=== PATIENT | male | born 1940 | race Caucasian/White ===

== ENCOUNTER 2017-01-02 10:10 | Inpatient (IN) | payer OTHER, MEDICARE ==
[~2017-01-02] VITALS: Ht 170.2 cm; Wt 69.5 kg
[2017-01-02] VITALS (10 sets, daily range): BP systolic 133–153; BP diastolic 64–99; PULSE 52–81; RESP 16–18; TEMP 97.6–98.3; O2SAT 98–100
[~2017-01-02 10:10] MED LIST: CELE40TA PO; CLOP75 PO; COMBAER INH; FLUTI44I INH; MELO15TA2 PO; METO25 PO; OMEP20CA5 PO; RANI300T PO; TOPI50TA4 PO; ZOCO80TA PO; [UNRECOGNIZED DRUG - CODE] PO
[2017-01-02] MEDS ORDERED: METO25TA3 PO (10:43)
[2017-01-02] MEDS ORDERED: PLAV75TA29 PO (10:43)
[2017-01-02] MEDS ORDERED: MOBI15TA PO (10:43)
[2017-01-02] MEDS ORDERED: ATOR1TAB18 PO (10:43)
[2017-01-02] MEDS ORDERED: OMEP20CA2 PO (10:43)
[2017-01-02] MEDS ORDERED: TOPI1TAB36 PO (10:43)
[2017-01-02 11:17] LABS: AUTOMATED NEUTROPHIL # 3.5 TH/MM3 (1.8-7.7); BASOPHIL # 0.1 TH/MM3 (0-0.2); EOSINOPHIL # 0.2 TH/MM3 (0-0.4); EOSINOPHIL % 2.7 % (0.0-4.0); HEMATOCRIT 38.5 % (39.0-51.0); HEMO FLAGS DIFF FINAL; LYMPH % 34.1 % (9.0-44.0); LYMPHOCYTE # 2.2 TH/MM3 (1.0-4.8); MEAN CELL VOLUME 84.4 FL (80.0-100.0); MEAN CORPUSCULAR HEMOGLOBIN 27.9 PG (27.0-34.0); MEAN CORPUSCULAR HGB CONC 33.1 % (32.0-36.0); MONO % 8.3 % (0.0-8.0); NEUT % 53.9 % (16.0-70.0); PLATELET COUNT 164 TH/MM3 (150-450); RED BLOOD COUNT 4.56 MIL/MM3 (4.50-5.90); RED CELL DISTRIBUTION WIDTH 15.9 % (11.6-17.2); WHITE BLOOD COUNT 6.4 TH/MM3 (4.0-11.0)
[2017-01-02 11:23] LABS: APTT (PATIENT) 28.9 SEC (24.3-30.1); INTERNATIONAL NORMALIZED RATIO 1.1 RATIO
[2017-01-02 11:27] LABS: AST (GOT) 29 U/L (15-37); BLOOD UREA NITROGEN 17 MG/DL (7-18); GLOMERULAR FILTRATION RATE 77 ML/MIN (>89)
[2017-01-02 11:28] LABS: ANION GAP 9 MEQ/L (5-15); BICARBONATE 22.8 MEQ/L (21.0-32.0); CHLORIDE 107 MEQ/L (98-107); POTASSIUM 3.9 MEQ/L (3.5-5.1); SODIUM (NA) 139 MEQ/L (136-145)
[2017-01-02 11:35] LABS: ALKALINE PHOSPHATASE 65 U/L (45-117); ALT (GPT) 36 U/L (12-78); INDIRECT BILIRUBIN 0.3 MG/DL (0.0-0.8); TOTAL BILIRUBIN ADULT 0.4 MG/DL (0.2-1.0)
[2017-01-02] MEDS ORDERED: OXYC1CAP PO (12:06)
--- NOTE | 2017-01-02 12:37 | PD ---
HPI Chief Complaint: Cardiac Complaint Time Seen by Provider: 10:31 Travel History International Travel<30 days: No Contact w/Intl Traveler<30days: No Traveled to known affect area: No History of Present Illness HPI 76yo M with PMH of CAD s/p CABG was sent by Dr. Arreola's office for evaluation of possible aortic aneurysm. Pt was there for a routine check up and mentioned that he has been having abdominal pain for a few weeks. Pain is to the right and below the umbilicus and there is a pulsatile mass palpated there. The pain is not tearing and does not radiate to the back or down the legs. Denies any fever, chest pain, sob, n/v, urinary complaint, focal weakness or numbness. PFSH Past Medical History Hx Anticoagulant Therapy: Yes (plavix) AAA: Yes Arthritis: Yes Anxiety: Yes Depression: Yes Cardiovascular Problems: Yes High Cholesterol: Yes COPD: Yes Coronary Artery Disease: Yes Diabetes: Yes Patient Takes Glucophage: No Gastrointestinal Disorders: Yes GERD: Yes Hiatal Hernia: Yes Hypertension: Yes Inguinal Hernia: Yes Medical other: Yes (hyperhydrosis) Respiratory: Yes (copd) Renal Failure: Yes (stage II) Past Surgical History Abdominal Surgery: Yes (3 hernia sx) Appendectomy: Yes Coronary Artery Bypass Graft: Yes Social History Alcohol Use: Yes (occ) Tobacco Use: No Substance Use: No Allergies-Medications (Allergen,Severity, Reaction): Coded Allergies: Bee Sting (Verified Allergy, Unknown, swelling, 01/02/17) Reported Meds & Prescriptions Reported Meds & Active Scripts Active Reported Lexapro (Escitalopram Oxalate) 20 Mg Tab 20 Mg PO DAILY Oxycodone (Oxycodone HCl) 5 Mg Cap 5 Mg PO Q6H PRN Mobic (Meloxicam) 15 Mg Tab 15 Mg PO DAILY Omeprazole 20 Mg Cap 20 Mg PO HS Topiramate 50 Mg Tab 50 Mg PO BID Metoprolol Tartrate 25 Mg Tab 25 Mg PO DAILY Plavix (Clopidogrel Bisulfate) 75 Mg Tab 75 Mg PO DAILY Atorvastatin (Atorvastatin Calcium) 80 Mg Tab 80 Mg PO HS Review of Systems Except as stated in HPI: all other systems reviewed are Neg Physical Exam Narrative GENERAL: 76yo M not in distress. SKIN: Focused skin assessment warm/dry. HEAD: Atraumatic. Normocephalic. EYES: Pupils equal and round. No scleral icterus. No injection or drainage. ENT: No nasal bleeding or discharge. Mucous membranes pink and moist. NECK: Trachea midline. No JVD. CARDIOVASCULAR: Regular rate and rhythm. No murmur appreciated. RESPIRATORY: No accessory muscle use. Clear to auscultation. Breath sounds equal bilaterally. GASTROINTESTINAL: Abdomen soft, +Pulsatile mass right abdomen. No rebound tenderness or guarding. MUSCULOSKELETAL: No obvious deformities. No clubbing. No cyanosis. No edema. NEUROLOGICAL: Awake and alert. No obvious cranial nerve deficits. Motor grossly within normal limits. Normal speech. PSYCHIATRIC: Appropriate mood and affect; insight and judgment normal. Data Data Last Documented VS Vital Signs Date Time Temp Pulse Resp B/P Pulse Ox O2 Delivery O2 Flow Rate FiO2 01/02/17 15:32 16 01/02/17 14:33 97.8 62 138/81 99 Room Air Orders Complete Blood Count With Diff (01/02/17 10:37) Basic Metabolic Panel (Bmp) (01/02/17 10:37) Prothrombin Time / Inr (Pt) (01/02/17 10:37) Act Partial Throm Time (Ptt) (01/02/17 10:37) Type And Screen (01/02/17 10:37) Troponin I (01/02/17 10:37) Lipase (01/02/17 10:37) Hepatic Functional Panel (01/02/17 10:37) Cta Thor Abd Aorta W Iv C W3d (01/02/17 10:37) Electrocardiogram (01/02/17 10:31) Iohexol 350 Inj (Omnipaque 350 Inj) (01/02/17 12:48) Acetamin-Hydrocod 325-5 Mg (Wilson 5-325 (01/02/17 14:30) Admit Order (Ed Use Only) (01/02/17 16:23) Labs Laboratory Tests Test 01/02/17 10:45 White Blood Count 6.4 TH/MM3 Red Blood Count 4.56 MIL/MM3 Hemoglobin 12.7 GM/DL Hematocrit 38.5 % Mean Corpuscular Volume 84.4 FL Mean Corpuscular Hemoglobin 27.9 PG Mean Corpuscular Hemoglobin 33.1 % Concent Red Cell Distribution Width 15.9 % Platelet Count 164 TH/MM3 Mean Platelet Volume 8.8 FL Neutrophils (%) (Auto) 53.9 % Lymphocytes (%) (Auto) 34.1 % Monocytes (%) (Auto) 8.3 % Eosinophils (%) (Auto) 2.7 % Basophils (%) (Auto) 1.0 % Neutrophils # (Auto) 3.5 TH/MM3 Lymphocytes # (Auto) 2.2 TH/MM3 Monocytes # (Auto) 0.5 TH/MM3 Eosinophils # (Auto) 0.2 TH/MM3 Basophils # (Auto) 0.1 TH/MM3 CBC Comment DIFF FINAL Differential Comment Prothrombin Time 12.0 SEC Prothromb Time International 1.1 RATIO Ratio Activated Partial 28.9 SEC Thromboplast Time Sodium Level 139 MEQ/L Potassium Level 3.9 MEQ/L Chloride Level 107 MEQ/L Carbon Dioxide Level 22.8 MEQ/L Anion Gap 9 MEQ/L Blood Urea Nitrogen 17 MG/DL Creatinine 0.96 MG/DL Estimat Glomerular Filtration 77 ML/MIN Rate Random Glucose 97 MG/DL Calcium Level 9.1 MG/DL Total Bilirubin 0.4 MG/DL Direct Bilirubin 0.1 MG/DL Indirect Bilirubin 0.3 MG/DL Aspartate Amino Transf 29 U/L (AST/SGOT) Alanine Aminotransferase 36 U/L (ALT/SGPT) Alkaline Phosphatase 65 U/L Troponin I LESS THAN 0.02 NG/ML Total Protein 7.0 GM/DL Albumin 3.7 GM/DL Lipase 133 U/L Blood Type O NEGATIVE Antibody Screen NEGATIVE Blood Bank Comment MDM Medical Decision Making Medical Screen Exam Complete: Yes Emergency Medical Condition: Yes Interpretation(s) EKG: Sinus bradycardia at 49bpm. LAD. No ST segment elevation or depression. Differential Diagnosis Aortic dissection vs. aortic aneurysm vs. 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 Pt also with pain there for a few weeks. Vital signs stable. Pt takes lortab for chronic pain and has been asking for it so gave 1 tab. Labs reviewed, no leukocytosis. Lipase negative. Troponin negative. CTA showed 7.8cm jextarenal abdominal aortic and iliac aneurysm. Discussed with vascular surgeon Dr. Carranza and he will come evaluate the patient. Dr. Carranza evaluated the patient and will admit the patient for open repair. Diagnosis Primary Impression: AAA (abdominal aortic aneurysm) Qualified Code: I71.4 - Abdominal aortic aneurysm (AAA) without rupture Admitting Information Admitting Physician Requests: Admit Beverly Torrez DO Jan 02, 2017 12:37
[2017-01-02] MEDS ORDERED: IOHEXOL 350 MG/ML 10 ML VIAL (for RAD DIAG) IV ONE (12:48)
[2017-01-02] MEDS ORDERED: ACETAMINOPHEN/HYDROcodone 325 MG/5 MG TAB PO ONE (14:30)
--- NOTE | 2017-01-02 14:50 | RADRPT ---
EXAM DATE/TIME: 01/02/2017 12:22 [facility] COMPARISON: No previous studies available for comparison. INDICATIONS : Pulsatile mass in the right umbilical region with tenderness. IV CONTRAST: 95 cc Omnipaque 350 (iohexol) IV RADIATION DOSE: 6.46 CTDIvol (mGy) MEDICAL HISTORY : Cardiovascular disease. Hypertension. SURGICAL HISTORY : Hernia surgeries ENCOUNTER: Initial ACUITY: 1 day PAIN SCALE: 2/10 LOCATION: Right Umbilical TECHNIQUE: Volumetric scanning was performed using a multi-row detector CT scanner. The data was post processed with a variety of visualization algorithms including full volume maximum intensity projection, multi -planar sliding thin slab reformation, curved planar reformation, and surface rendering techniques. Using automated exposure control and adjustment of the mA and/or kV according to patient size, radiat ion dose was kept as low as reasonably achievable to obtain optimal diagnostic quality images. DICOM format image data is available electronically for review and comparison. FINDINGS: LUNGS: Mild biapical probable pleural-parenchymal scarring, slightly more prominent on the right than the le ft. MEDIASTINUM: No abnormally enlarged lymph nodes by CT criteria. No axillary or hilar abnormalities are identified. ABDOMEN: Multiple hepatic cysts. Tiny calcified gallstones. PELVIS: Urinary bladder is mildly distended. No pelvic mass, adenopathy or free fluid. THORACIC AORTA: The thoracic aortic root is normal with normal branching of the great vessels. There is no evidence of aneurysm or dissection. ABDOMINAL AORTA: A nearly 8 cm juxtarenal abdominal aortic aneurysm is identified. The apex of the aneurysm encompasse s the origin of the single left renal artery. There is abundant eccentric mural thrombus present. Dil atation extends into the iliacs bilaterally which have been previously stented. Dilatation extends do wn to the iliac bifurcation on both sides. The hypogastrics are patent bilaterally. The external yoselin cs are normal in caliber and mildly diseased bilaterally. The visualized common femoral arteries are relatively healthy and the visualized proximal thigh vessels are patent. 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 Chris Stockton MD on January 02, 2017 at 14:39 Board Certified Radiologist. This report was verified electronically.
--- NOTE | 2017-01-02 15:12 | EKG ---
Date Performed: 01/02/2017 Time Performed: 10:31:53 PTAGE: 76 years EKG: SINUS BRADYCARDIA MARKED LEFT AXIS DEVIATION MODERATE INTRAVENTRICULAR CONDUCTION DELAY ABN ORMAL ECG NO PREVIOUS TRACING DOCTOR: Jabari Finley Interpretating Date/Time 01/02/2017 15:11:33
--- NOTE | 2017-01-02 16:23 | PD.CAR.PN ---
CVT Progress Note Subjective/Hospital Course: Patient with a large AAA For open repair after basic workup Full consult GURJIT Carranza Objective: Vital Signs Date Time Temp Pulse Resp B/P Pulse Ox O2 Delivery O2 Flow Rate FiO2 01/02/17 15:32 16 01/02/17 14:33 97.8 62 16 138/81 99 Room Air 01/02/17 12:06 98.0 52 16 137/64 100 Room Air 01/02/17 10:36 54 16 144/77 100 Room Air 01/02/17 10:23 51 18 100 Room Air 01/02/17 10:14 97.6 57 16 153/73 100 Room Air Labs: Laboratory Tests Test 01/02/17 10:45 White Blood Count 6.4 TH/MM3 (4.0-11.0) Red Blood Count 4.56 MIL/MM3 (4.50-5.90) Hemoglobin 12.7 GM/DL (13.0-17.0) Hematocrit 38.5 % (39.0-51.0) Mean Corpuscular Volume 84.4 FL (80.0-100.0) Mean Corpuscular Hemoglobin 27.9 PG (27.0-34.0) Mean Corpuscular Hemoglobin 33.1 % Concent (32.0-36.0) Red Cell Distribution Width 15.9 % (11.6-17.2) Platelet Count 164 TH/MM3 (150-450) Mean Platelet Volume 8.8 FL (7.0-11.0) Neutrophils (%) (Auto) 53.9 % (16.0-70.0) Lymphocytes (%) (Auto) 34.1 % (9.0-44.0) Monocytes (%) (Auto) 8.3 % (0.0-8.0) Eosinophils (%) (Auto) 2.7 % (0.0-4.0) Basophils (%) (Auto) 1.0 % (0.0-2.0) Neutrophils # (Auto) 3.5 TH/MM3 (1.8-7.7) Lymphocytes # (Auto) 2.2 TH/MM3 (1.0-4.8) Monocytes # (Auto) 0.5 TH/MM3 (0-0.9) Eosinophils # (Auto) 0.2 TH/MM3 (0-0.4) Basophils # (Auto) 0.1 TH/MM3 (0-0.2) CBC Comment DIFF FINAL Differential Comment Prothrombin Time 12.0 SEC (9.8-11.6) Prothromb Time International 1.1 RATIO Ratio Activated Partial 28.9 SEC Thromboplast Time (24.3-30.1) Sodium Level 139 MEQ/L (136-145) Potassium Level 3.9 MEQ/L (3.5-5.1) Chloride Level 107 MEQ/L (98-107) Carbon Dioxide Level 22.8 MEQ/L (21.0-32.0) Anion Gap 9 MEQ/L (5-15) Blood Urea Nitrogen 17 MG/DL (7-18) Creatinine 0.96 MG/DL (0.60-1.30) Estimat Glomerular Filtration 77 ML/MIN (>89) Rate Random Glucose 97 MG/DL (74-106) Calcium Level 9.1 MG/DL (8.5-10.1) Total Bilirubin 0.4 MG/DL (0.2-1.0) Direct Bilirubin 0.1 MG/DL (0.0-0.2) Indirect Bilirubin 0.3 MG/DL (0.0-0.8) Aspartate Amino Transf 29 U/L (15-37) (AST/SGOT) Alanine Aminotransferase 36 U/L (12-78) (ALT/SGPT) Alkaline Phosphatase 65 U/L (45-117) Troponin I LESS THAN 0.02 NG/ML (0.02-0.05) Total Protein 7.0 GM/DL (6.4-8.2) Albumin 3.7 GM/DL (3.4-5.0) Lipase 133 U/L (73-393) Blood Type O NEGATIVE Antibody Screen NEGATIVE Blood Bank Comment Result Diagram: 01/02/17 1045 01/02/17 1045 Deysi Castillo MD Jan 02, 2017 16:22
[2017-01-02] MEDS ORDERED: LEXA20TA PO (21:59)
[2017-01-02] MEDS ORDERED: NALOXONE HCL 0.4 MG/ML AMP IV PRN (22:15)
[2017-01-02] MEDS ORDERED: SODIUM CHLORIDE 0.9% FLUSH 10 ML FLUSH IV FLUSH PRN (22:15)
[2017-01-02] MEDS ORDERED: Post-op Orders (for Pharmacy) MISC XX ONE (22:15)
[2017-01-02] MEDS ORDERED: ESCITALOPRAM OXALATE 20 MG TAB PO SCH (23:00)
[2017-01-03] VITALS (21 sets, daily range): BP systolic 122–140; BP diastolic 72–85; PULSE 52–70; RESP 18; TEMP 98.1–98.5; O2SAT 97–98
--- NOTE | 2017-01-03 08:49 | PD.CONS ---
[facility] By Dr. 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 He was seeing Dr. Arreola in the office for routine follow-up and was noted to have a palpable pulsatile mass in the abdomen. He reports some abdominal discomfort. He does have a significant family history of AAA. Denies chest pain, dyspnea. Review of Systems Constitutional: DENIES: Fever, Chills, Night Sweats Eyes: DENIES: Blurred vision, Vision loss Ears, nose, mouth, throat: DENIES: Hearing loss Respiratory: DENIES: Cough, Wheezing, Sputum production, Shortness of breath Cardiovascular: DENIES: Chest pain, Palpitations, Dyspnea on Exertion, Lower Extremity Edema Gastrointestinal: COMPLAINS OF: Abdominal pain, DENIES: Constipation, Diarrhea , Nausea, Vomiting Genitourinary: DENIES: Urinary frequency, Urinary incontinence, Urgency, Hematuria, Dysuria, Nocturia Musculoskeletal: DENIES: Joint pain, Muscle aches Integumentary: DENIES: Pruritus, Rash Hematologic/lymphatic: DENIES: Bruising Neurologic: DENIES: Headache Past Family Social History Allergies: Coded Allergies: Bee Sting (Verified Allergy, Unknown, swelling, 01/02/17) Past Medical History AAA Anxiety/depression Osteoarthritis next line hyperlipidemia Coronary artery disease COPD Diabetes mellitus, diet controlled GERD Hypertension Chronic kidney disease stage II Past Surgical History Inguinal hernia repair Umbilical hernia repair Hiatal hernia repair Appendectomy CABG 4 vessels Reported Medications Lexapro (Escitalopram Oxalate) 20 Mg Tab 20 Mg PO DAILY Oxycodone (Oxycodone HCl) 5 Mg Cap 5 Mg PO Q6H PRN Mobic (Meloxicam) 15 Mg Tab 15 Mg PO DAILY Omeprazole 20 Mg Cap 20 Mg PO HS Topiramate 50 Mg Tab 50 Mg PO BID Metoprolol Tartrate 25 Mg Tab 25 Mg PO DAILY Plavix (Clopidogrel Bisulfate) 75 Mg Tab 75 Mg PO DAILY Atorvastatin (Atorvastatin Calcium) 80 Mg Tab 80 Mg PO HS Family History AAA Heart disease Social History Quit smoking 19 years ago. Occasional alcohol use. Denies illicit drug use. Physical Exam Vital Signs Vital Signs Date Time Temp Pulse Resp B/P Pulse Ox O2 Delivery O2 Flow Rate FiO2 01/03/17 07:01 59 01/03/17 06:00 58 01/03/17 05:00 52 01/03/17 04:00 55 01/03/17 03:00 98.5 65 18 135/83 98 01/03/17 03:00 60 01/03/17 02:00 60 01/03/17 01:00 58 01/03/17 00:00 56 01/02/17 23:00 98.3 67 18 133/91 98 01/02/17 23:00 53 01/02/17 22:00 53 01/02/17 21:00 68 01/02/17 20:30 97.9 64 18 143/99 98 01/02/17 19:53 68 18 134/67 98 Room Air 01/02/17 16:31 98.1 58 16 145/67 100 Room Air 01/02/17 15:32 16 01/02/17 14:33 97.8 62 16 138/81 99 Room Air 01/02/17 12:06 98.0 52 16 137/64 100 Room Air 01/02/17 10:36 54 16 144/77 100 Room Air 01/02/17 10:23 51 18 100 Room Air 01/02/17 10:14 97.6 57 16 153/73 100 Room Air Physical Exam GENERAL: Well-nourished, well-developed male in no acute distress. HEENT: Normocephalic, atraumatic. Pupils equal, round and reactive. Extraocular movements intact. No scleral icterus. No injection or drainage. Oropharynx is clear. Mucous membranes are moist. CARDIOVASCULAR: Regular rate and rhythm without murmurs, gallops, or rubs. RESPIRATORY: Clear to auscultation. No wheezes, rales, or rhonchi. Breathing is non-labored. GASTROINTESTINAL: Abdomen soft, non-tender, nondistended. Pulsatile mass noted in the right lower abdomen. EXTREMITIES: No lower extremity edema. No calf tenderness. PSYCH: Alert and oriented x 3. Laboratory Laboratory Tests Test 01/02/17 10:45 White Blood Count 6.4 Red Blood Count 4.56 Hemoglobin 12.7 Hematocrit 38.5 Mean Corpuscular Volume 84.4 Mean Corpuscular Hemoglobin 27.9 Mean Corpuscular Hemoglobin 33.1 Concent Red Cell Distribution Width 15.9 Platelet Count 164 Mean Platelet Volume 8.8 Neutrophils (%) (Auto) 53.9 Lymphocytes (%) (Auto) 34.1 Monocytes (%) (Auto) 8.3 Eosinophils (%) (Auto) 2.7 Basophils (%) (Auto) 1.0 Neutrophils # (Auto) 3.5 Lymphocytes # (Auto) 2.2 Monocytes # (Auto) 0.5 Eosinophils # (Auto) 0.2 Basophils # (Auto) 0.1 CBC Comment DIFF FINAL Differential Comment Prothrombin Time 12.0 Prothromb Time International 1.1 Ratio Activated Partial 28.9 Thromboplast Time Sodium Level 139 Potassium Level 3.9 Chloride Level 107 Carbon Dioxide Level 22.8 Anion Gap 9 Blood Urea Nitrogen 17 Creatinine 0.96 Estimat Glomerular Filtration 77 Rate Random Glucose 97 Calcium Level 9.1 Total Bilirubin 0.4 Direct Bilirubin 0.1 Indirect Bilirubin 0.3 Aspartate Amino Transf 29 (AST/SGOT) Alanine Aminotransferase 36 (ALT/SGPT) Alkaline Phosphatase 65 Troponin I LESS THAN 0.02 Total Protein 7.0 Albumin 3.7 Lipase 133 Blood Type O NEGATIVE Antibody Screen NEGATIVE Blood Bank Comment Result Diagram: 01/02/17 1045 01/02/17 1045 Imaging Last Impressions Aorta CTA 01/02/17 1037 Signed Impressions: Service Date/Time: December 12:22 - CONCLUSION: 7.8 cm juxtarenal abdominal aortic and iliac aneurysm. Chris Stockton MD Assessment and Plan Assessment and Plan 1. AAA: CT shows 7.8 cm AAA. Appreciate vascular surgery recommendations. Planning for aneurysm repair. 2. Diabetes mellitus: Diet-controlled. Monitor Accu-Cheks and cover with sliding scale insulin. 3. Hypertension: Continue metoprolol. 4. Anxiety/depression: Continue Lexapro. 5. GERD: Continue PPI. 6. Coronary artery disease, hyperlipidemia: Currently asymptomatic. Continue statin, blood pressure control, Plavix. 7. DVT prophylaxis: SCDs. Code Status Full code. Problem Qualifiers (1) AAA (abdominal aortic aneurysm): Qualified Code: I71.4 - Abdominal aortic aneurysm (AAA) without rupture (2) Diabetes mellitus: Qualified Code: E11.22 - Type 2 diabetes mellitus with stage 2 chronic kidney disease, without long-term current use of insulin Omar Sam MD Jan 03, 2017 08:49
[2017-01-03] MEDS ORDERED: DEXTROSE 50% IN WATER 50 ML VIAL(D50) IV PRN (09:00)
[2017-01-03] MEDS ORDERED: GLUCAGON 1 MG/ML VIAL OTHER PRN (09:00)
[2017-01-03] MEDS ORDERED: MELOXICAM 15 MG TAB PO SCH (09:00)
[2017-01-03] MEDS ORDERED: ESCITALOPRAM OXALATE 20 MG TAB PO SCH (09:00)
[2017-01-03] MEDS ORDERED: SODIUM CHLORIDE 0.9% FLUSH 10 ML FLUSH IV FLUSH SCH (09:00)
[2017-01-03] MEDS ORDERED: PANTOPRAZOLE SOD 40 MG DELAYED RELEASE TAB PO SCH (09:00)
[2017-01-03] MEDS ORDERED: TOPIRAMATE 25 MG TAB PO SCH (09:00)
[2017-01-03] MEDS ORDERED: METOPROLOL TARTRATE 25 MG TAB PO SCH (09:00)
[2017-01-03] MEDS ORDERED: CLOPIDOGREL 75 MG TAB PO SCH (09:00)
[2017-01-03] MEDS: INSULIN ASPART SUPPLEMENTAL SCALE SQ SCH ×2 (11:00→16:00)
--- NOTE | 2017-01-03 16:58 | MH ---
cc: DEYSI MELTON MD DATE OF ADMISSION: 01/02/2017 ADMITTING DIAGNOSIS: Abdominal aortic aneurysm initially detected in a cardiology office. HISTORY OF PRESENT ILLNESS: This is a 76-year-old male who went for cardiology workup by Dr. Arreola and was noted to have a pulsatile mass in his upper abdomen. The patient underwent a CT scan with contrast, which revealed about a 7.8 abdominal aortic aneurysm in a juxtarenal position. The patient was sent to the emergency room and is now admitted for further care. PAST MEDICAL HISTORY: 1. Coronary artery disease. 2. Diabetes mellitus. 3. Hyperlipidemia. 4. Hypertension. 5. Anxiety disorder. 6. Renal insufficiency stage II. PAST SURGICAL HISTORY: 1. Hiatal hernia repair. 2. Appendectomy. 3. Coronary artery bypass surgery. 4. Inguinal hernia repair. MEDICATIONS: Medications can be found on the record. SOCIAL HISTORY: The patient stopped smoking about 20 years ago. PHYSICAL EXAMINATION: GENERAL: The physical examination reveals a 76-year-old gentleman in no acute distress. HEAD, EYES, EARS, NOSE, THROAT: Normocephalic. No trauma to the head. Pupils equal and reactive. Extraocular muscles intact. NECK: The neck is supple. Bilateral carotid pulses. No bruits. CHEST: Clear. Bilateral breath sounds. HEART: Regular rhythm. ABDOMEN: Abdomen soft. Active bowel sounds. On palpation, there is a large pulsatile mass present, which is actually midline and slightly to the right consistent with an abdominal aortic aneurysm measuring over 7 cm in diameter. EXTREMITIES: The patient has excellent distal pulses. No signs of vascular deficit. The patient has palpable femoral, popliteal, dorsalis pedis and posterior tibial pulses. BACK: The back is normal. NEUROLOGIC: The patient is intact. IMPRESSION AND RECOMMENDATIONS: I reviewed laboratory and diagnostic procedures. This gentleman has a juxtarenal abdominal aortic aneurysm which is not amenable to endovascular repair due to the lack of the neck and the proximity of the renal artery. In addition, the patient has a single renal artery, which is at this level and an open repair would require clamping above the renal artery, and with his stage II kidney failure, I do not doubt that the patient would become anuric and dialysis-dependent permanently. In addition, the patient has comorbidities making him not a bad but at moderate risk for open surgery. At this point, we do not have means to treat this juxtarenal artery aneurysm in this institution. The patient should be sent to an institution that has the equipment and staff to deal with this problem on an endovascular open basis. Deysi VASQUEZ/ZAHIDA /4:49 PM /4:54 PM
--- NOTE | 2017-01-03 17:09 | PD.CAR.PN ---
CVT Progress Note Subjective/Hospital Course: Patient with a large AAA For open repair after basic workup Full consult TF Dixon Carranza 01/03/17 76-year-old gentleman with a juxtarenal abdominal aortic aneurysm and 1 single renal artery This aneurysm is not amiable to endovascular or open repair at our institution There are several places carrying investigational grafts anchoring above the renal arteries while the open repair is to be done with perfusion of the renal artery I'll discharge patient this time and refer him to Dr. Jorge Figueroa in [place] for the above Discussed this with patient at length Objective: Vital Signs Date Time Temp Pulse Resp B/P Pulse Ox O2 Delivery O2 Flow Rate FiO2 01/03/17 16:01 58 01/03/17 15:30 98.1 62 18 122/72 97 01/03/17 15:00 60 01/03/17 14:00 64 01/03/17 13:00 62 01/03/17 12:01 68 01/03/17 11:15 98.2 56 18 130/85 97 01/03/17 11:00 52 01/03/17 10:00 54 01/03/17 09:30 18 01/03/17 09:00 70 01/03/17 08:30 98.2 57 18 140/85 98 01/03/17 08:00 58 01/03/17 07:01 59 01/03/17 06:00 58 01/03/17 05:00 52 01/03/17 04:00 55 01/03/17 03:00 98.5 65 18 135/83 98 01/03/17 03:00 60 01/03/17 02:00 60 01/03/17 01:00 58 01/03/17 00:00 56 01/02/17 23:00 98.3 67 18 133/91 98 01/02/17 23:00 53 01/02/17 22:00 53 01/02/17 21:00 68 01/02/17 20:30 97.9 64 18 143/99 98 01/02/17 19:53 68 18 134/67 98 Room Air Result Diagram: 01/02/17 1045 01/02/17 1045 Deysi Castillo MD Jan 03, 2017 17:09
[2017-01-03] MEDS ORDERED: ATORVASTATIN 80 MG TAB PO SCH (21:00)
== END 2017-01-03 17:58 | disposition home or self-care (01) | DRG 301 ==
LOC: NEPC 10:10 → NEDA 16:25 → HCIN 20:19
PROVIDERS: ADMIT Surgery; ATTEND Surgery
DX: I71.4 Abdominal aortic aneurysm, without rupture (principal); E11.22 Type 2 diabetes mellitus with diabetic chronic kidney disease; I72.3 Aneurysm of iliac artery; N28.89 Other specified disorders of kidney and ureter; I25.10 Atherosclerotic heart disease of native coronary artery without angina pectoris; Z95.1 Presence of aortocoronary bypass graft; I12.9 Hypertensive chronic kidney disease with stage 1 through stage 4 chronic kidney disease, or unspecified chronic kidney disease; N18.2 Chronic kidney disease, stage 2 (mild); F41.9 Anxiety disorder, unspecified; Z87.891 Personal history of nicotine dependence; J44.9 Chronic obstructive pulmonary disease, unspecified; K44.9 Diaphragmatic hernia without obstruction or gangrene; K21.9 Gastro-esophageal reflux disease without esophagitis; E78.5 Hyperlipidemia, unspecified; M19.90 Unspecified osteoarthritis, unspecified site; F32.9 Major depressive disorder, single episode, unspecified
CPT/HCPCS: 71275; 74174; 80048; 80076; 82948; 83690; 84484; 85025; 85610; 85730; 86850; 86900; 86901; 93005; 94150; Q9967

== ENCOUNTER → 2017-01-17 | Outpatient (CLI) | payer OTHER, MEDICARE ==
[~2017-01-17] MED LIST changes: +ATOR1TAB18 PO; -CELE40TA PO; -CLOP75 PO; -COMBAER INH; -FLUTI44I INH; +LEXA20TA PO; -MELO15TA2 PO; -METO25 PO; +METO25TA3 PO; +MOBI15TA PO; +OMEP20CA2 PO; -OMEP20CA5 PO; +OXYC1CAP PO; -RANI300T PO; +TOPI1TAB36 PO; -TOPI50TA4 PO; -ZOCO80TA PO; -[UNRECOGNIZED DRUG - CODE] PO
== END ==
LOC: HRAD 15:00
DX: I71.4 Abdominal aortic aneurysm, without rupture (principal)

== ENCOUNTER 2017-01-30 11:06 | Inpatient (IN) | payer OTHER, MEDICARE ==
[~2017-01-30] VITALS: Ht 170.2 cm; Wt 69.0 kg
[~2017-01-30 11:06] MED LIST changes: -LEXA20TA PO; -MOBI15TA PO; -OXYC1CAP PO
[2017-02-03] MEDS ORDERED: FISH1200 PO (12:53)
[2017-02-03] MEDS ORDERED: CHOL5000 PO (12:53)
[2017-02-03] MEDS ORDERED: LISI-519 PO (12:53)
[2017-02-03] MEDS ORDERED: CLOP75TA PO (12:53)
[2017-02-03] MEDS ORDERED: ALBU6.7H INH (12:53)
[2017-02-03] MEDS ORDERED: ASPI-110 PO (12:53)
[2017-02-03] MEDS ORDERED: ALPR0.25 PO (12:53)
[2017-02-03] MEDS ORDERED: MONT10TA4 PO (12:53)
[2017-02-03] MEDS ORDERED: NITR1SUB3 SL (12:53)
[2017-02-03] MEDS ORDERED: HYDR-3516 PO (12:53)
[2017-02-03] MEDS ORDERED: GUAI400T8 PO (12:53)
[2017-02-19] VITALS (19 sets, daily range): BP systolic 83–148; BP diastolic 37–84; PULSE 62–92; RESP 12–18; TEMP 96.7–98.2; O2SAT 96–100
[2017-02-19] MEDS ORDERED: PROTAMINE SULFATE 250 MG/25 ML VIAL IV ONE (05:00)
[2017-02-19] MEDS ORDERED: VECURONIUM BROMIDE 10 MG VIAL IV ONE (05:00)
[2017-02-19] MEDS ORDERED: ARTIFICIAL TEARS OPTH OINT 3.5 APPLIC/3.5 GM TUBO ONE (05:00)
[2017-02-19] MEDS ORDERED: FUROSEMIDE 100 MG/10 ML VIAL IV PUSH ONE (05:00)
[2017-02-19] MEDS ORDERED: EPINEPHrine HCL (1:1000) 30 MG/30 ML VIAL IV ONE (05:00)
[2017-02-19] MEDS ORDERED: NITROGLYCERIN-D5W 50 MG/250 ML 250 ML IV ONE (05:00)
[2017-02-19] MEDS ORDERED: LACTATED RINGER'S 1000 ML IV PRN (07:30)
[2017-02-19] MEDS ORDERED: POVIDONE IODINE 5% (ANTISEPSIS KIT) 4 APPLICATIONS EACH NARE PRN (07:30)
[2017-02-19] MEDS ORDERED: SODIUM CHLORID 0.9% 500 ML IV PRN (07:30)
[2017-02-19] MEDS ORDERED: CHLORHEXIDINE GLUCONATE 2 % 1 PACK (2 CLOTHS) TOPICAL PRN (07:30)
[2017-02-19] MEDS ORDERED: METOPROLOL TARTRATE 25 MG TAB PO PRN (07:30)
[2017-02-19] MEDS ORDERED: INSULIN HUMAN REGULAR 1,000 UNITS/10 ML VIAL SQ PRN (07:30)
--- NOTE | 2017-02-19 07:44 | PD.VS.PN ---
Pre-operative Note Pre-operative diagnosis: TAAA Planned procedure: open repair of TAAA Interval History: Pt been feeling well over past few days, no F/C/N/V. Appropriately anxious for surgery. Labs: Hct 37 plt 148 cr 1.1 Blood: T&C 4U PRBC, 4U FFP Imaging: CTA reviewed; 8 cm TAAA Orders: NPO Kefzol 2g IV OCTOR Post-operative destination: [facility] Operative site marked: No (not indicated) Consent: Informed consent has been obtained from Rc Moya. I have explained the procedure in detail and discussed the risks, benefits, and potential complications. All questions have been answered. Patient contact information: daughter (Natalia) [phone] Obdulio Benjamin MD Feb 19, 2017 07:44
[2017-02-19] MEDS ORDERED: PROTAMINE SULFATE 50 MG/5 ML VIAL ONE (08:17)
[2017-02-19] MEDS ORDERED: GELFOAM SIZE 100 ONE (08:17)
[2017-02-19] MEDS ORDERED: THROMBIN (TOPICAL) 20,000 UNIT SPRAY KIT ONE ×2 (08:17→09:29)
[2017-02-19] MEDS ORDERED: ceFAZolin 2 GM PREMIX 50 ML ONE (08:17)
[2017-02-19] MEDS ORDERED: HEPARIN SODIUM - IV 10,000 UNITS/10 ML VIAL ONE (08:17)
[2017-02-19] MEDS ORDERED: HEPARIN SODIUM - SQ 10,000 UNITS/ML VIAL ONE (08:21)
[2017-02-19] MEDS ORDERED: MIDAZOLAM HCL 2 MG/2 ML VIAL ONE (09:11)
[2017-02-19] MEDS ORDERED: DEXAMETHASONE SOD PHOS 4 MG/ML VIAL ONE (09:11)
[2017-02-19] MEDS ORDERED: FAMOTIDINE 20 MG/2 ML VIAL ONE (09:12)
[2017-02-19] MEDS ORDERED: SUGAMMADEX SODIUM 200 MG/2 ML VIAL IV PUSH ONE ×2 (09:17)
[2017-02-19] MEDS ORDERED: VASOPRESSIN 20 UNITS/ML VIAL (IVTITR) ONE (09:17)
[2017-02-19] MEDS ORDERED: ACETAMINOPHEN 1000 MG/100 ML VIAL IV ONE ×2 (09:17→17:45)
[2017-02-19] MEDS ORDERED: ePHEDrine/NS 25 MG/5 ML SYR IV ONE (12:00)
[2017-02-19] MEDS ORDERED: PROPOFOL 200 MG/20 ML AMP IV ONE (12:00)
[2017-02-19] MEDS ORDERED: NORMOSOL R INJ 4,000 ML IV ONE (12:00)
[2017-02-19] MEDS ORDERED: PHENYLEPH/NS 1000 MCG/10 ML SYR IV ONE (12:00)
[2017-02-19] MEDS ORDERED: NITROGLYCERIN 50 MG/DEXTROSE 5% SOLN 250 ML BTL IV ONE (12:00)
[2017-02-19 12:49] LABS: BLOOD GAS BASE EXCESS -6.2 mmol/L (-2-2); BLOOD GAS HCO3 19 mmol/L (22-26); BLOOD GAS METHEMOGLOBIN 1.3 % (0-2); BLOOD GAS O2 HGB SATURATION 95 % (90-100); BLOOD GAS OXYGEN CONTENT 13.2 Vol % (12.0-20.0); BLOOD GAS PCO2 35 mmHg (38-42); BLOOD GAS PO2 106 mmHg (61-120); BLOOD GAS TOTAL HGB 9.7 G/DL (12.0-16.0); CRITICAL VALUE NO; FIO2 50 %; OXYGEN DEVICE VENTILATOR; TEMP CORR TO 98.6; VENT SETTINGS OR SETTINGS
[2017-02-19 12:50] LABS: NUMBER OF ARTERIAL PUNCTURES 0; STAT YES; ULNAR PULSE PRESENT
[2017-02-19 13:08] LABS: REVIEW FLAG FINAL
[2017-02-19 13:10] LABS: HEMATOCRIT 28.7 % (39.0-51.0)
[2017-02-19] MEDS: LACTATED RINGER'S 1000 ML INJ 1,000 ML IV SCH (14:20)
--- NOTE | 2017-02-19 14:20 | HHI.PR ---
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 Open retroperitoneal repair of TAAA (24 minute renal ischemia time) with 24x12 Dacron 2. MEAGAN reimplantation Findings: successful repair, + Doppler signals B after completion palpable L renal artery and MEAGAN pulses Complications: none apparent Specimen(s) removed: none for pathology Estimated blood loss: 1500mL Anesthesia: General Drains: Chest tube (28F LEFT chest) Fluids: 4000mL x'oid; 725 mL cellsaver Patient to: Other ([facility]) Patient Condition: Critical Date/Time of Procedure: SEE SURGICAL CARE RECORD Obdulio Benjamin MD Feb 19, 2017 14:20
[2017-02-19] MEDS ORDERED: NALOXONE HCL 0.4 MG/ML AMP IV PRN (14:30)
[2017-02-19] MEDS ORDERED: MORPHINE SULFATE 30 MG/30 ML PCA IV SCH (14:30)
[2017-02-19] MEDS ORDERED: DO NOT ADM ANY ANTICOAGULANT DRUGS PRN (14:31)
[2017-02-19] MEDS ORDERED: MORPHINE SULFATE 4 MG/ML INJ ONE (14:46)
[2017-02-19] MEDS ORDERED: fentaNYL CITRATE 250 MCG/5 ML AMP ONE ×2 (14:47)
[2017-02-19] MEDS ORDERED: hydrALAZINE HCL 20 MG/ML VIAL ONE (15:04)
[2017-02-19 15:32] LABS: HEMATOCRIT 28.2 % (39.0-51.0); MEAN CELL VOLUME 85.5 FL (80.0-100.0); MEAN CORPUSCULAR HEMOGLOBIN 28.2 PG (27.0-34.0); PLATELET COUNT 121 TH/MM3 (150-450); RED CELL DISTRIBUTION WIDTH 15.9 % (11.6-17.2); REVIEW FLAG FINAL; WHITE BLOOD COUNT 19.3 TH/MM3 (4.0-11.0)
--- NOTE | 2017-02-19 15:42 | RADRPT ---
EXAM DATE/TIME: 02/19/2017 14:57 [facility] COMPARISON: CTA THORACIC ABDOMINAL AORTA W 3D RECON, January 02, 2017, 12:22. INDICATIONS : Chest tube placement after open AAA. MEDICAL HISTORY : Cardiovascular disease. Hypertension.abdominal aortic and iliac aneurysm. SURGICAL HISTORY : CABG. Hernia surgeries ENCOUNTER: Initial ACUITY: 1 day PAIN SCORE: 0/10 LOCATION: Bilateral chest FINDINGS: Left chest tube in good position without pneumothorax. Central line in good position on the right. The lungs are clear. The heart and pulmonary vascularity are normal. Wire saphenous bypass are noted . CONCLUSION: Chest tube on the left without pneumothorax. pneumothorax. Lungs are clear. Jac Dougherty MD FACR on February 19, 2017 at 15:36 Board Certified Radiologist. This report was verified electronically.
[2017-02-19 15:46] LABS: BICARBONATE 23.9 MEQ/L (21.0-32.0); POTASSIUM 4.3 MEQ/L (3.5-5.1)
--- NOTE | 2017-02-19 16:42 | PD.CONS ---
[facility] Service Critical Care Medicine Consult Requested By Dr. Benjamin Reason for Consult S/p open AAA repair, medical management Primary Care Physician Kathy Klein M.D. History of Present Illness 76 yo male with past medical history significant for diabetes, hypertension, coronary artery disease status post CABG, chronic kidney disease who was admitted today to Dr. Benjamin. Patient has a known 7.8 cm AAA. He underwent elective open retroperitoneal repair of AAA with 24x12 Dacron, and MEAGAN reimplantation today 02/19/17. Estimated blood loss was 1500mL. Received 4L crystalloid and 725 mL cell saver. I met the patient in the ICU postop. He slightly groggy from pain medication but follows commands. Urine output is excellent. Patient's blood pressure target his 90-120 systolic. He received 20 mg of hydralazine for a blood pressure of 160 systolic, which made him hypotensive and now getting 1L fluid bolus. Left thoracoabdominal incision clean without bleeding. Review of Systems ROS Limitations: Other (as per HPI) Past Family Social History Allergies: Coded Allergies: bee venom protein (honey bee) (Unverified Allergy, Unknown, swelling, 02/19) Past Medical History AAA, 7.8 cm Anxiety/depression Hyperlipidemia Coronary artery disease COPD Diabetes mellitus, GERD Hypertension Chronic kidney disease stage II Past Surgical History Inguinal hernia repair Umbilical hernia repair Hiatal hernia repair Appendectomy CABG 4 vessels Reported Medications Lexapro Oxycodone Mobic Omeprazole Topiramate Metoprolol Plavix Atorvastatin ASA daily NTG prn Lisinopril Montelukast Active Ordered Medications Reviewed Family History Significant for AAA and CAD Social History Quit smoking 20 years ago Physical Exam Vital Signs Vital Signs Date Time Temp Pulse Resp B/P Pulse Ox O2 Delivery O2 Flow Rate FiO2 02/19/17 07:39 97.6 62 18 131/84 100 Physical Exam GENERAL: Well-nourished, well-developed male in no acute distress, slightly groggy after receiving morphine HEENT: Normocephalic, atraumatic. Pupils equal, round and reactive. CARDIOVASCULAR: Regular rate and rhythm without murmurs, gallops, or rubs. RESPIRATORY: Clear to auscultation. No wheezes, rales, or rhonchi. GASTROINTESTINAL: Abdomen soft, non-tender, nondistended. Large left sided vertical thoracoabdominal incision clean dry, L chest tube with minimal output, no air leak EXTREMITIES: No lower extremity edema. Right DP, PT pulses palpable, L DP, PT felt by Doppler PSYCH: Alert and oriented x 3. Laboratory Laboratory Tests Test 02/19/17 02/19/17 02/19/17 02/19/17 07:34 12:03 12:15 12:29 Blood Type O NEGATIVE Antibody Screen NEGATIVE Crossmatch Leukocyte-Reduced Red Blood Cells Blood Bank Comment Blood Gas Puncture Site DRAWN IN OR Blood Gas Patient Temperature 98.6 Blood Gas HCO3 19 Blood Gas Base Excess -6.2 Blood Gas Oxygen Saturation 95 Arterial Blood pH 7.34 Arterial Blood Partial 35 Pressure CO2 Arterial Blood Partial 106 Pressure O2 Arterial Blood Oxygen Content 13.2 Arterial Blood 1.0 Carboxyhemoglobin Arterial Blood Methemoglobin 1.3 Blood Gas Hemoglobin 9.7 Oxygen Delivery Device VENTILATOR Blood Gas Ventilator Setting OR SETTINGS Blood Gas Inspired Oxygen 50 Hemoglobin 9.4 Hematocrit 28.7 Platelet Count 164 Test 02/19/17 14:50 White Blood Count 19.3 Red Blood Count 3.30 Hemoglobin 9.3 Hematocrit 28.2 Mean Corpuscular Volume 85.5 Mean Corpuscular Hemoglobin 28.2 Mean Corpuscular Hemoglobin 33.0 Concent Red Cell Distribution Width 15.9 Platelet Count 121 Mean Platelet Volume 8.3 Sodium Level 141 Potassium Level 4.3 Chloride Level 106 Carbon Dioxide Level 23.9 Anion Gap 11 Blood Urea Nitrogen 16 Creatinine 0.86 Estimat Glomerular Filtration 87 Rate Random Glucose 180 Calcium Level 8.3 Result Diagram: 02/19/17 1450 02/19/17 1450 Assessment and Plan Assessment and Plan NEURO: - 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 - Urine output is excellent - Continue LR at 84 ml per minute - Resume aspirin 02/21/[address] Benjamin - Target systolic blood pressure 90-125 Dr. Benjamin, use when necessary hydralazine - Consider Cleviprex or Cardene for tight blood pressure control GI: - NPO, Pepcid - Diet when cleared by vascular surgery : - Monitor renal function closely. Vora catheter. - Renal ischemia time 24 min, watch for ATN ID: - Monitor for infection. Perioperative antibiotics per Dr. Benjamin HEME: - Monitor CBC, CMP, coags - EBL was 1.5 L, received 750 mL of Cell Saver ENDO: - Sliding-scale insulin, electrolyte replacement per protocol PROPH: - s/q heparin from 02/21/17. Pepcid 20 mg BID LINES: - Utilize peripheral IVs, central line if needed Addendum: A Halicat and was called as the patient became unresponsive and hypotensive. I had just evaluated the patient 5 min ago, and immediately responded to halicat. Patient received 1 L of crystalloid bolus, 0.4 mg IV Narcan and respiratory therapists had started bag and mask ventilation. After the above interventions patient is more awake able to follow commands but complains about left-sided chest pain. Second dose of Narcan 0.4 mg given, additional 1L bolus. Stat ABG showed respiratory alkalosis and hemoglobin 8.1. Stat chest x-ray pending. PLAN: - Discontinue morphine ASSISTANT BOILER OPERATOR. Ofirmev for pain control. Narcan PRN - Stat 2U PRBC - NS 2L bolus - No focal deficits and no clinical evidence of bleeding - CBC, CMP, lactic acid, troponin, PT/PTT/fibrinogen - Start Lucien synephrine if needed to keep MAP >65 - Use lactate and UO for resuscitation - Further recommendations based on labs and clinical course Code Status Full Discussed Condition With Bing Hobbs MD Feb 19, 2017 16:42
[2017-02-19] MEDS ORDERED: PHENYLEPHRINE HCL 10 MG/ML VIAL ONE (17:36)
[2017-02-19] MEDS: ONDANSETRON HCL 4 MG/2 ML VIAL IV PUSH PRN (17:40)
[2017-02-19 17:57] LABS: AUTOMATED NEUTROPHIL # 16.1 TH/MM3 (1.8-7.7); BASOPHIL # 0.1 TH/MM3 (0-0.2); BASOPHIL % 0.3 % (0.0-2.0); HEMATOCRIT 24.1 % (39.0-51.0); HEMO FLAGS DIFF FINAL; LYMPH % 6.3 % (9.0-44.0); LYMPHOCYTE # 1.2 TH/MM3 (1.0-4.8); MEAN CELL VOLUME 83.8 FL (80.0-100.0); MEAN CORPUSCULAR HEMOGLOBIN 28.1 PG (27.0-34.0); MEAN CORPUSCULAR HGB CONC 33.5 % (32.0-36.0); MONO % 9.7 % (0.0-8.0); NEUT % 83.7 % (16.0-70.0); PLATELET COUNT 118 TH/MM3 (150-450); RED BLOOD COUNT 2.88 MIL/MM3 (4.50-5.90); RED CELL DISTRIBUTION WIDTH 15.9 % (11.6-17.2); WHITE BLOOD COUNT 19.2 TH/MM3 (4.0-11.0)
[2017-02-19] MEDS ORDERED: PHENYLEPHRINE INJ 40 MG in DEXTROSE 5% IN WATE 500 ML INJ 496 ML IV SCH ×2 (18:00)
[2017-02-19] MEDS ORDERED: TERBUTALINE INJ 1 MG/ML AMP SQ PRN (18:00)
[2017-02-19] MEDS ORDERED: SODIUM CHLOR 0.9% 1000 ML INJ 1,000 ML IV ONE (18:00)
[2017-02-19] MEDS ORDERED: hydrALAZINE HCL 20 MG/ML VIAL IV ONE (18:00)
--- NOTE | 2017-02-19 18:08 | RADRPT ---
EXAM DATE/TIME: 02/19/2017 17:37 [facility] COMPARISON: CHEST SINGLE AP, February 19, 2017, 14:57. INDICATIONS : Short of breath. MEDICAL HISTORY : Cardiovascular disease. Hypertension. Abdominal aortic and iliac aneurysm. SURGICAL HISTORY : CABG. Hernia surgeries ENCOUNTER: Initial ACUITY: 1 day PAIN SCORE: Non-responsive. LOCATION: Bilateral chest FINDINGS: Board Certified Radiologist. This report was verified electronically. A single AP semierect view of the chest was obtained ag ain demonstrates the left-sided chest tube in place with no visualized pneumothorax. The patient is s tatus post median sternotomy. A right internal jugular central venous line remains in place. There is mild hazy opacity now noted projected over the left lung base. There is no distinct effusion. The he art size is within normal limits. CONCLUSION: 1. Right-sided chest tube in place with no pneumothorax. 2. Mild hazy opacity now noted in the left lung base. Rc Gutierrez MD on February 19, 2017 at 18:04
[2017-02-19 19:05] LABS: APTT (PATIENT) 26.6 SEC (24.3-30.1); INTERNATIONAL NORMALIZED RATIO 1.1 RATIO; PROTHROMBIN TIME - PATIENT 12.7 SEC (9.8-11.6)
[2017-02-19 19:15] LABS: ALKALINE PHOSPHATASE 50 U/L (45-117); ALT (GPT) 18 U/L (12-78); ANION GAP 13 MEQ/L (5-15); AST (GOT) 19 U/L (15-37); BICARBONATE 21.3 MEQ/L (21.0-32.0); BLOOD UREA NITROGEN 16 MG/DL (7-18); CHLORIDE 108 MEQ/L (98-107); CREATINE KINASE 288 U/L (39-308); GLOMERULAR FILTRATION RATE 89 ML/MIN (>89); POTASSIUM 3.8 MEQ/L (3.5-5.1); SODIUM (NA) 142 MEQ/L (136-145); TOTAL BILIRUBIN ADULT 0.5 MG/DL (0.2-1.0)
[2017-02-19] MEDS ORDERED: RESP: ALBUTEROL 2.5 MG/IPRATROPIUM 0.5 MG NEB (PRN) NEB (20:00)
[2017-02-19] MEDS: CEFEPIME INJ 2,000 MG in SODIUM CHLORIDE 0.9% INJ 100 ML IV SCH (20:43)
[2017-02-19] MEDS ORDERED: FAMOTIDINE 20 MG TAB PO SCH (21:00)
[2017-02-19 21:21] LABS: HEMATOCRIT 33.6 % (39.0-51.0); MEAN CELL VOLUME 83.8 FL (80.0-100.0); MEAN CORPUSCULAR HEMOGLOBIN 28.1 PG (27.0-34.0); MEAN CORPUSCULAR HGB CONC 33.5 % (32.0-36.0); PLATELET COUNT 85 TH/MM3 (150-450); RED BLOOD COUNT 4.01 MIL/MM3 (4.50-5.90); WHITE BLOOD COUNT 15.1 TH/MM3 (4.0-11.0)
[2017-02-19 21:32] LABS: REVIEW FLAG FINAL
[2017-02-19] MEDS ORDERED: PCA - TOTAL MG MORPHINE DELIVERED PER SHIFT SCH (22:00)
[2017-02-20] VITALS (12 sets, daily range): BP systolic 106–159; BP diastolic 56–81; PULSE 76–109; RESP 16–20; TEMP 98–99.8; O2SAT 95–99
[2017-02-20] MEDS ORDERED: ICU - POTASSIUM CHLORIDE/AQUEOUS SOLN 20 MEQ/100 ML IVPB IV PRN (00:30)
[2017-02-20] MEDS ORDERED: ICU - SODIUM PHOSPHATE 30 MMOL/NS 250 ML IV PRN ×2 (00:30)
[2017-02-20] MEDS ORDERED: ICU - POTASSIUM PHOSPHATE 30 MMOL/NS 250 ML IV PRN ×2 (00:30)
[2017-02-20] MEDS ORDERED: ICU - POTASSIUM PHOSPHATE MONOBASIC 500 MG TAB PO PRN (00:30)
[2017-02-20] MEDS ORDERED: ICU - MAGNESIUM SULFATE 4 GM/NS 100 ML IV PRN ×2 (00:30)
[2017-02-20] MEDS ORDERED: POTASSIUM CHLORIDE 25 MEQ EFFERVESCENT TAB PO PRN (00:30)
[2017-02-20] MEDS ORDERED: ICU - MAGNESIUM OXIDE 400 MG TAB PO PRN (00:30)
[2017-02-20] MEDS ORDERED: ICU - MAGNESIUM SULFATE 2 GM/NS 100 ML IV PRN ×2 (00:30)
[2017-02-20] MEDS ORDERED: ICU - POTASSIUM CHLORIDE/AQUEOUS SOLN 40 MEQ/100 ML IVPB IV PRN (00:30)
[2017-02-20] MEDS ORDERED: ICU - D/C ICU ELECTROLYTE ORDERS PRN (00:30)
[2017-02-20] MEDS ORDERED: ICU - CALL ORDERING PHYSICIAN PRN (00:30)
[2017-02-20] MEDS ORDERED: GLUCAGON 1 MG/ML VIAL OTHER PRN (00:45)
[2017-02-20] MEDS ORDERED: DEXTROSE 50% IN WATER 50 ML VIAL(D50) IV PUSH PRN (00:45)
[2017-02-20 00:47] LABS: CKMB 5.4 NG/ML (0.5-3.6)
[2017-02-20] MEDS ORDERED: SODIUM CHLOR 0.9% 1000 ML INJ 1,000 ML IV ONE (01:15)
[2017-02-20] MEDS: FAMOTIDINE 20 MG/2 ML VIAL IV SCH ×3 (01:54→21:31)
[2017-02-20] MEDS: LACTATED RINGER'S 1000 ML INJ 1,000 ML IV SCH (02:25)
[2017-02-20 04:06] LABS: AUTOMATED NEUTROPHIL # 8.3 TH/MM3 (1.8-7.7); BASOPHIL % 0.2 % (0.0-2.0); HEMATOCRIT 29.2 % (39.0-51.0); LYMPHOCYTE # 1.3 TH/MM3 (1.0-4.8); MEAN CELL VOLUME 83.2 FL (80.0-100.0); MEAN CORPUSCULAR HEMOGLOBIN 29.2 PG (27.0-34.0); MEAN CORPUSCULAR HGB CONC 35.1 % (32.0-36.0); MONO % 10.2 % (0.0-8.0); NEUT % 77.6 % (16.0-70.0); PLATELET COUNT 76 TH/MM3 (150-450); RED BLOOD COUNT 3.51 MIL/MM3 (4.50-5.90); RED CELL DISTRIBUTION WIDTH 15.8 % (11.6-17.2); WHITE BLOOD COUNT 10.6 TH/MM3 (4.0-11.0)
[2017-02-20 04:14] LABS: HEMO FLAGS AUTO DIFF
[2017-02-20 04:38] LABS: ALT (GPT) 18 U/L (12-78); ANION GAP 8 MEQ/L (5-15); AST (GOT) 29 U/L (15-37); BICARBONATE 26.1 MEQ/L (21.0-32.0); BLOOD UREA NITROGEN 17 MG/DL (7-18); CHLORIDE 111 MEQ/L (98-107); GLOMERULAR FILTRATION RATE 97 ML/MIN (>89); SODIUM (NA) 145 MEQ/L (136-145)
[2017-02-20 04:41] LABS: ALKALINE PHOSPHATASE 46 U/L (45-117); CREATINE KINASE 694 U/L (39-308); TOTAL BILIRUBIN ADULT 0.6 MG/DL (0.2-1.0)
[2017-02-20 04:48] LABS: OVALOCYTES 1+ (NORMAL); PLATELET ESTIMATE SMEAR LOW (NORMAL); PLATELET MORPHOLOGY NORMAL (NORMAL); SCAN/DIFF AUTO DIFF CONFIRMED
[2017-02-20] MEDS: hydrALAZINE HCL 20 MG/ML VIAL IV PUSH PRN ×4 (05:00→21:49)
[2017-02-20 05:03] LABS: CKMB 4.9 NG/ML (0.5-3.6)
[2017-02-20] MEDS: ONDANSETRON HCL 4 MG/2 ML VIAL IV PUSH PRN (05:10)
[2017-02-20] MEDS: MORPHINE SULFATE 4 MG/ML INJ IV PRN ×4 (05:36→20:42)
--- NOTE | 2017-02-20 06:15 | RADRPT ---
EXAM DATE/TIME: 02/20/2017 04:58 [facility] COMPARISON: CHEST SINGLE AP, February 19, 2017, 17:37. INDICATIONS : Shortness of breath, possible pulmonary disease. MEDICAL HISTORY : Cardiovascular disease. Hypertension Aneurysm, abdominal. SURGICAL HISTORY : Abdominal aortic aneurysm repair. Hernia repair ENCOUNTER: Subsequent ACUITY: 2 days PAIN SCORE: Non-responsive. LOCATION: Bilateral chest FINDINGS: Right IJ catheter tip projects over the proximal superior vena cava. Left chest drainage tube tip at the apex. There is persistent patchy consolidation in the medial left lower lung. Right lung is cl ear. No evidence of pneumothorax. CONCLUSION: Stable left lower lung infiltrates. Jorge Huang MD on February 20, 2017 at 6:12 Board Certified Radiologist. This report was verified electronically.
[2017-02-20] MEDS: LOW DOSE INSULIN NOVOLIN REGULAR SUPPLEMENTAL SCALE SQ SCH ×4 (07:00→21:00)
--- NOTE | 2017-02-20 07:59 | MP ---
cc: KARLENE BENJAMIN MD DATE OF SURGERY 02/19/2017 PREOPERATIVE DIAGNOSIS Thoracoabdominal aortic aneurysm POSTOPERATIVE DIAGNOSIS Thoracoabdominal aortic aneurysm PROCEDURE 1. Open repair of thoracoabdominal aortic aneurysm with a 24 x 12 bifurcated Dacron graft. 2. Reimplantation of inferior mesenteric artery. MEDICATIONS Karlene Benjamin MD CLOTH BOLT BANDER SURGEON Geri Azar ANESTHESIA General INDICATION Mr. Moya is a 76-year-old gentleman with an 8 centimeter thoracoabdominal aneurysm. It is not amenable to endovascular therapy and after discussion with the patient, he was offered open surgical repair. DESCRIPTION OF THE PROCEDURE Informed consent was obtained from the patient. He was taken to the operating room and placed supine on the operating table and an appropriate time-out was taken to ensure the patient's identity, operative site and planned procedure. The administration of 2 grams Ancef was initiated prior to skin incision and redosed after an appropriate time interval. It will be discontinued after preoperative and intraoperative dosing. Everyone in the room agreed with the time-out and we proceeded. He was placed in the thoracoabdominal position with all pressure points carefully padded. The patient's chest, torso, hips and thighs were prepped and draped. An incision was made in the left flank. Carried down through the subcutaneous tissues with electrocautery. The muscle was incised with electrocautery and the peritoneum was identified. It was swept anteromedially thereby exposing the retroperitoneal plane. The diaphragm was incised and a rib was resected. The diaphragm was carefully incised leaving a rim for future closure. The Bookwalter retractor was then set up and the retroperitoneum was dissected. The aorta was dissected free. The left renal artery was identified and dissected free and circled with a vessel loop. The mirlande of the diaphragm was taken down thereby exposing the supraceliac aorta. The aneurysm extended up to the level of the renal arteries, but there appeared to be a filling ring right at this level and as such the aorta was circumferentially dissected immediately caudal to the SMA. Distally, the left common iliac artery was easily dissected free and the right common iliac artery was dissected and noted to be aneurysmal with a stent inside it. The ureter was carefully protected at all times. Both iliac arteries were encircled with vessel loops. At this point, the MEAGAN was similarly dissected free and circled with a vessel loop. The patient was then systemically heparinized and throughout the remainder of the case the heparin was re-bolused to keep the ACT greater than 250. Distal control of the iliac was obtained with transplant profunda clamps and proximal control was obtained with a Zinger's clamp. The Zinger's clamp was placed suprarenal. The aorta was then opened and lumbar vessels were oversewn with silk suture. A 24 x 12 bifurcated Dacron was brought up on the field and after the proximal aspect was spatulated, the graft was sewn end-to-end with running 2-0 Prolene suture. At the completion, it was flushed and in conjunction with the Anesthesia colleagues. The Margarito bulldog, which had been placed on left renal artery, was removed and there was a nice palpable pulse in the left renal artery. Hemostasis was achieved with several pledgeted sutures and the clamp was moved down to the graft location. The right iliac artery was then dissected free down to the bifurcation and the artery was opened and the previously placed stent was removed. The Dacron was cut to an appropriate length, spatulated and sewn end-to-end with running 4-0 Prolene suture. At the completion, it was flushed and noted to be hemostatic. The clamp was released from the iliac artery while manual pressure was held on the femoral artery thereby perfusing the pelvis first and then in sequence the right leg was reperfused in conjunction with our Anesthesia colleagues. The left limb was then sewn to the left common iliac artery by transected the left common iliac artery, spatulating it and spatulating the graft to an appropriate length. It was sewn end-to-end with running 4-0 Prolene suture. At the completion, it was flushed and noted to be hemostatic. There were Doppler signals in both feet and all three anastomoses were noted to be hemostatic. The MEAGAN was dissected free and a Carrel patch was created using the aortic wall. The right limb was then clamped with profunda clamps and a longitudinal graftotomy was made with an 11 blade and extended with Doerun scissors and an ellipse was cut from the Dacron. The MEAGAN was then reimplanted into the right limb with an aortobiiliac reconstruction using the aortic wall as a Carrel patch using 5-0 Prolene suture. At the completion, the clamps were released. There remained a nice pulse in the right foot as well as a palpable pulse in the inferior mesenteric artery. The heparin reversed with protamine. Two units of FFP were administered. All the retroperitoneal contents were inspected and there appeared to be no ureteral injury. Additionally, there was excellent hemostasis. Surgicel and spray thrombin were then applied and a 28-Icelandic chest tube was placed through a separate incision and secured to the skin with a 0-silk. The diaphragm was repaired with a 2-0 Prolene and the aortic sac was then reapproximated with 2-0 Polysorb. The retroperitoneal contents were allowed to return to their normal anatomic position and the retroperitoneum was then closed with #1 looped PDS. The skin was closed with 2-0 Polysorb and 4-0 Monocryl. The sponge and needle counts were correct at the end of the case. I was present and scrubbed for the entire procedure. At the end of the case, the patient was transported to the Intensive Care Unit in stable condition. MD APOLINAR Mcconnell/WILL /5:01 PM /7:31 AM
--- NOTE | 2017-02-20 08:59 | PD.VS.PN ---
Subjective POD #: 1 Procedure(s): TAAA and MEAGAN reimplantation Subjective/Hospital Course respiratory distress yesterday post-op responded to Narcan Otherwise, uneventful night No SOB Did receive 2U PRBC post-op with appropriate response Neuro intact Objective Vitals/I&O Date Time Temp Pulse Resp B/P Pulse Ox O2 Delivery O2 Flow Rate FiO2 02/20/17 07:17 97 Nasal Cannula 2.00 02/20/17 07:00 98 Nasal Cannula 2.00 02/20/17 06:42 14 02/20/17 04:00 98.0 76 16 134/79 98 159/69 02/20/17 04:00 76 02/20/17 03:00 Nasal Cannula 2.00 02/20/17 02:12 88 02/20/17 00:00 98.0 85 18 106/78 95 106/72 02/19/17 23:00 Nasal Cannula 2.00 02/19/17 22:26 98.2 89 17 106/73 96 113/62 02/19/17 22:12 92 02/19/17 21:06 98 Nasal Cannula 4.00 02/19/17 19:21 86 02/19/17 19:00 97.8 89 18 129/38 96 148/82 02/19/17 19:00 Room Air 02/19/17 19:00 89 02/19/17 18:55 97.6 88 14 129/80 99 138/77 02/19/17 18:00 97.5 81 14 120/74 99 137/67 02/19/17 18:00 78 12 107/58 99 114/54 02/19/17 17:50 83 12 92/60 99 96/49 02/19/17 17:30 97.5 92 12 88/62 98 90/50 02/19/17 17:26 97.5 02/19/17 17:00 86 14 87/56 97 106/55 02/19/17 16:30 83 14 90/55 97 95/50 02/19/17 16:00 97.0 81 14 88/52 97 86/47 02/19/17 15:30 84 14 83/52 97 93/51 02/19/17 15:15 83 14 126/76 97 138/65 02/19/17 15:00 96.7 73 12 125/56 98 145/75 02/19/17 14:50 71 12 125/66 99 141/75 02/19/17 14:40 96.8 75 12 128/83 99 131/37 Exam: Resting comfortably Neuro intact Palpable femoral pulses Incision c/d/i abdomen soft, NT Laboratory Laboratory Tests Test 02/19/17 02/19/17 02/19/17 02/19/17 12:03 12:15 12:29 14:50 Blood Bank Comment Blood Gas Puncture Site DRAWN IN OR Blood Gas Patient Temperature 98.6 Blood Gas HCO3 19 Blood Gas Base Excess -6.2 Blood Gas Oxygen Saturation 95 Arterial Blood pH 7.34 Arterial Blood Partial 35 Pressure CO2 Arterial Blood Partial 106 Pressure O2 Arterial Blood Oxygen Content 13.2 Arterial Blood 1.0 Carboxyhemoglobin Arterial Blood Methemoglobin 1.3 Blood Gas Hemoglobin 9.7 Oxygen Delivery Device VENTILATOR Blood Gas Ventilator Setting OR SETTINGS Blood Gas Inspired Oxygen 50 Hemoglobin 9.4 9.3 Hematocrit 28.7 28.2 Platelet Count 164 121 White Blood Count 19.3 Red Blood Count 3.30 Mean Corpuscular Volume 85.5 Mean Corpuscular Hemoglobin 28.2 Mean Corpuscular Hemoglobin 33.0 Concent Red Cell Distribution Width 15.9 Mean Platelet Volume 8.3 Sodium Level 141 Potassium Level 4.3 Chloride Level 106 Carbon Dioxide Level 23.9 Anion Gap 11 Blood Urea Nitrogen 16 Creatinine 0.86 Estimat Glomerular Filtration 87 Rate Random Glucose 180 Calcium Level 8.3 Test 02/19/17 02/19/17 02/19/17 02/19/17 17:30 17:38 18:24 20:17 White Blood Count 19.2 15.1 Red Blood Count 2.88 4.01 Hemoglobin 8.1 11.3 Hematocrit 24.1 33.6 Mean Corpuscular Volume 83.8 83.8 Mean Corpuscular Hemoglobin 28.1 28.1 Mean Corpuscular Hemoglobin 33.5 33.5 Concent Red Cell Distribution Width 15.9 16.0 Platelet Count 118 85 Mean Platelet Volume 8.7 8.2 Neutrophils (%) (Auto) 83.7 Lymphocytes (%) (Auto) 6.3 Monocytes (%) (Auto) 9.7 Eosinophils (%) (Auto) 0.0 Basophils (%) (Auto) 0.3 Neutrophils # (Auto) 16.1 Lymphocytes # (Auto) 1.2 Monocytes # (Auto) 1.9 Eosinophils # (Auto) 0.0 Basophils # (Auto) 0.1 CBC Comment DIFF FINAL Differential Comment Blood Type O NEGATIVE Crossmatch Leukocyte-Reduced Leukocyte-Reduced Red Blood Red Blood Cells Cells Blood Bank Comment Prothrombin Time 12.7 Prothromb Time International 1.1 Ratio Activated Partial 26.6 Thromboplast Time Fibrinogen 172 Sodium Level 142 Potassium Level 3.8 Chloride Level 108 Carbon Dioxide Level 21.3 Anion Gap 13 Blood Urea Nitrogen 16 Creatinine 0.84 Estimat Glomerular Filtration 89 Rate Random Glucose 198 Lactic Acid Level 2.8 Calcium Level 7.5 Total Bilirubin 0.5 Aspartate Amino Transf 19 (AST/SGOT) Alanine Aminotransferase 18 (ALT/SGPT) Alkaline Phosphatase 50 Total Creatine Kinase 288 Creatine Kinase MB 3.0 Total Protein 4.8 Albumin 2.5 Test 02/19/17 02/20/17 23:30 03:50 Total Creatine Kinase 550 694 Creatine Kinase MB 5.4 4.9 Creatine Kinase MB % 1.0 0.7 White Blood Count 10.6 Red Blood Count 3.51 Hemoglobin 10.3 Hematocrit 29.2 Mean Corpuscular Volume 83.2 Mean Corpuscular Hemoglobin 29.2 Mean Corpuscular Hemoglobin 35.1 Concent Red Cell Distribution Width 15.8 Platelet Count 76 Mean Platelet Volume 9.0 Neutrophils (%) (Auto) 77.6 Lymphocytes (%) (Auto) 12.0 Monocytes (%) (Auto) 10.2 Eosinophils (%) (Auto) 0.0 Basophils (%) (Auto) 0.2 Neutrophils # (Auto) 8.3 Lymphocytes # (Auto) 1.3 Monocytes # (Auto) 1.1 Eosinophils # (Auto) 0.0 Basophils # (Auto) 0.0 CBC Comment AUTO DIFF Differential Comment AUTO DIFF CONFIRMED Platelet Estimate LOW Platelet Morphology Comment NORMAL Ovalocytes 1+ Sodium Level 145 Potassium Level 4.0 Chloride Level 111 Carbon Dioxide Level 26.1 Anion Gap 8 Blood Urea Nitrogen 17 Creatinine 0.78 Estimat Glomerular Filtration 97 Rate Random Glucose 139 Calcium Level 7.6 Total Bilirubin 0.6 Aspartate Amino Transf 29 (AST/SGOT) Alanine Aminotransferase 18 (ALT/SGPT) Alkaline Phosphatase 46 Total Protein 5.1 Albumin 2.5 Assessment and Plan Plan POD#1 s/p TAAA with MEAGAN reimplantation 1. OOB TC 2. HL IVF and can have sips of water; anticipate starting diuresis tomorrow 3. CT to water seal 4. recheck CBC at 1400 today 5. Vora in until tomorrow (POD#2) for accurate I/O Discharge Planning 5-7 days Obdulio Benjamin MD Feb 20, 2017 08:59
[2017-02-20] MEDS ORDERED: FAMOTIDINE 20 MG/2 ML VIAL IV SCH (09:00)
[2017-02-20] MEDS: CEFEPIME INJ 2,000 MG in SODIUM CHLORIDE 0.9% INJ 100 ML IV SCH ×2 (09:01→21:31)
--- NOTE | 2017-02-20 09:51 | HHI.CCPN ---
Subjective Remarks/Hospital Course 76 yo male with past medical history significant for diabetes, hypertension, coronary artery disease status post CABG, chronic kidney disease who was admitted today to Dr. Benjamin. Patient has a known 7.8 cm AAA. He underwent elective open retroperitoneal repair of AAA with 24x12 Dacron, and MEAGAN reimplantation today 02/19/17. Estimated blood loss was 1500mL. Received 4L crystalloid and 725 mL cell saver. I met the patient in the ICU postop. He slightly groggy from pain medication but follows commands. Urine output is excellent. Patient's blood pressure target his 90-120 systolic. He received 20 mg of hydralazine for a blood pressure of 160 systolic, which made him hypotensive and now getting 1L fluid bolus. Left thoracoabdominal incision clean without bleeding. Few minutes after I had evaluated the patient, a Herreraicat and was called as the patient became unresponsive and hypotensive. Patient was give 2 L of crystalloid bolus, 0.4 mg IV Narcan x2 and was briefly bagged. Also 2U PRBC given. SUBJ 02/20: Patient better clinically. Hemodynamically stable. Urine output remains good. Good peripheral pulses left DP/PT by Doppler. Lactic acid was 2.8 yesterday repeat today Objective Vital Signs Date Time Temp Pulse Resp B/P Pulse Ox O2 Delivery O2 Flow Rate FiO2 02/20/17 07:17 97 Nasal Cannula 2.00 02/20/17 06:42 14 02/20/17 04:00 98.0 76 134/79 159/69 Intake and Output 02/19/17 02/19/17 02/19/17 07:59 15:59 23:59 Intake Total 1750 ml Output Total 750 ml Balance 1000 ml Result Diagram: 02/20/17 0350 02/20/17 0350 Other Results Laboratory Tests Test 02/19/17 12:15 Blood Gas Puncture Site DRAWN IN OR Blood Gas Patient Temperature 98.6 Blood Gas HCO3 19 mmol/L (22-26) Blood Gas Base Excess -6.2 mmol/L (-2-2) Blood Gas Oxygen Saturation 95 % (90-100) Arterial Blood pH 7.34 (7.380-7.420) Arterial Blood Partial 35 mmHg (38-42) Pressure CO2 Arterial Blood Partial 106 mmHg Pressure O2 (61-120) Arterial Blood Oxygen Content 13.2 Vol % (12.0-20.0) Arterial Blood 1.0 % (0-4) Carboxyhemoglobin Arterial Blood Methemoglobin 1.3 % (0-2) Blood Gas Hemoglobin 9.7 G/DL (12.0-16.0) Oxygen Delivery Device VENTILATOR Blood Gas Ventilator Setting OR SETTINGS Blood Gas Inspired Oxygen 50 % Objective Remarks GENERAL: Well-nourished, well-developed male in no acute distress HEENT: Normocephalic, atraumatic. Pupils equal, round and reactive. CARDIOVASCULAR: Regular rate and rhythm without murmurs, gallops, or rubs. RESPIRATORY: Clear to auscultation. No wheezes, rales, or rhonchi. GASTROINTESTINAL: Abdomen soft, non-tender, nondistended. Large left sided vertical thoracoabdominal incision clean dry, L chest tube with 284 ml output since placement EXTREMITIES: No lower extremity edema. Right DP, PT pulses palpable, L DP, PT felt by Doppler PSYCH: Alert and oriented x 3. No FND A/P Assessment and Plan NEURO: - Morphine 1-2 mg IV PRN and Tylenol when necessary for pain control - Otherwise minimize sedation RESP: - Nasal cannula oxygen, incentive spirometry. - Add EzPAP, Acapella - Aggressive pulmonary toilet - DuoNeb every 6 hours when necessary - Left chest tube with minimal output CV: s/p open AAA repair Hypertension Lactic acidosis, mild - Received 4 L crystalloids in the OR and 2L post op in ICU. - Urine output is adequate. Lactic acid was 2.8. Will repeat today - Continue LR at 84 ml per minute - Resume aspirin 02/21/[address] Benjamin. Lipitor resumed - Target systolic blood pressure 110-[address] Benjamin, use when necessary hydralazine GI: - NPO, Pepcid - Diet when cleared by vascular surgery : - Monitor renal function closely. Vora catheter. - Renal ischemia time 24 min, watch for ATN - Urine output and creatinine remain stable ID: - Monitor for infection. Empiric cefepime started for LLL infiltrate. DC if cultures negative HEME: - Monitor CBC, CMP, coags - EBL was 1.5 L, received 750 mL of Cell Saver - 2U PRBC given post op in ICU 02/19 ENDO: - Sliding-scale insulin, electrolyte replacement per protocol PROPH: - s/q heparin from 02/21/17. Pepcid 20 mg BID LINES: - Utilize peripheral IVs, central line if needed Level 3 Continue ICU care for another 24 hours and re evaluate PT OOB Bing Perez MD Feb 20, 2017 09:51 PLAN: - Discontinue morphine MEDICAL OFFICE REP. Ofirmev for pain control. Narcan PRN - Stat 2U PRBC - NS 2L bolus - No focal deficits and no clinical evidence of bleeding - CBC, CMP, lactic acid, troponin, PT/PTT/fibrinogen - Start Lucien synephrine if needed to keep MAP >65 - Use lactate and UO for resuscitation - Further recommendations based on labs and clinical course Bing Perez MD Feb 20, 2017 09:51
[2017-02-20] MEDS: TOPIRAMATE 100 MG TAB PO SCH (15:36)
[2017-02-20 15:38] LABS: HEMATOCRIT 21.2 % (39.0-51.0); MEAN CELL VOLUME 85.8 FL (80.0-100.0); MEAN CORPUSCULAR HEMOGLOBIN 28.7 PG (27.0-34.0); MEAN CORPUSCULAR HGB CONC 33.4 % (32.0-36.0); PLATELET COUNT 67 TH/MM3 (150-450); RED BLOOD COUNT 2.48 MIL/MM3 (4.50-5.90); RED CELL DISTRIBUTION WIDTH 15.9 % (11.6-17.2); WHITE BLOOD COUNT 9.7 TH/MM3 (4.0-11.0)
[2017-02-20 15:43] LABS: REVIEW FLAG FINAL
[2017-02-20] MEDS ORDERED: FUROSEMIDE 20 MG/2 ML VIAL IV PUSH ONE (17:00)
[2017-02-20] MEDS: ATORVASTATIN 40 MG TAB PO SCH (20:42)
[2017-02-21] VITALS (12 sets, daily range): BP systolic 125–152; BP diastolic 55–84; PULSE 84–109; RESP 15–20; TEMP 98–99.2; O2SAT 93–97
[2017-02-21] MEDS: MORPHINE SULFATE 4 MG/ML INJ IV PRN ×5 (02:17→19:53)
[2017-02-21] MEDS: ONDANSETRON HCL 4 MG/2 ML VIAL IV PUSH PRN ×2 (02:18→08:41)
[2017-02-21 04:28] LABS: HEMATOCRIT 34.2 % (39.0-51.0); MEAN CORPUSCULAR HEMOGLOBIN 28.6 PG (27.0-34.0); PLATELET COUNT 83 TH/MM3 (150-450); RED BLOOD COUNT 4.07 MIL/MM3 (4.50-5.90); RED CELL DISTRIBUTION WIDTH 16.1 % (11.6-17.2); WHITE BLOOD COUNT 14.5 TH/MM3 (4.0-11.0)
[2017-02-21 04:32] LABS: REVIEW FLAG FINAL
[2017-02-21 04:45] LABS: BICARBONATE 25.8 MEQ/L (21.0-32.0); POTASSIUM 3.5 MEQ/L (3.5-5.1)
[2017-02-21] MEDS: LOW DOSE INSULIN NOVOLIN REGULAR SUPPLEMENTAL SCALE SQ SCH ×4 (06:03→21:00)
--- NOTE | 2017-02-21 08:23 | PD.VS.PN ---
Subjective POD #: 2 Procedure(s): TAAA and MEAGAN reimplantation Subjective/Hospital Course looks good; pain controlled + flatus, no nausea + thirsty has not been OOB exaggerated response to 2U PRBC yest (21 to 34) suspect 21 falsely low Objective Vitals/I&O Date Time Temp Pulse Resp B/P Pulse Ox O2 Delivery O2 Flow Rate FiO2 02/21/17 04:00 95 02/21/17 04:00 95 Nasal Cannula 2.00 02/21/17 04:00 99.2 95 20 125/73 95 144/64 02/21/17 00:00 95 18 137/74 97 149/65 02/21/17 00:00 95 02/21/17 00:00 97 Nasal Cannula 2.00 02/20/17 22:10 99 Nasal Cannula 2.00 02/20/17 20:45 99.0 102 20 159/74 98 02/20/17 20:00 94 02/20/17 20:00 98 Nasal Cannula 2.00 02/20/17 20:00 02/20/17 20:00 99.1 95 20 131/74 98 156/71 02/20/17 19:43 99.0 109 133/64 98 02/20/17 18:07 99.8 100 16 129/70 98 138/58 02/20/17 16:00 82 02/20/17 16:00 99.7 82 16 158/65 98 141/74 02/20/17 15:00 97 Nasal Cannula 2.00 02/20/17 14:40 12 02/20/17 12:00 92 02/20/17 12:00 99.7 92 18 139/81 98 133/59 02/20/17 11:00 98 Nasal Cannula 2.00 02/20/17 10:54 12 02/21/17 02/21/17 02/21/17 06:59 14:59 22:59 Intake Total 1080 ml Output Total 1200 ml Balance -120 ml Exam: no distress abdomen soft palpable pulses incision ok neuro intact Laboratory Laboratory Tests Test 02/20/17 02/20/17 02/21/17 11:05 14:45 04:00 Lactic Acid Level 1.0 White Blood Count 9.7 14.5 Red Blood Count 2.48 4.07 Hemoglobin 7.1 11.6 Hematocrit 21.2 34.2 Mean Corpuscular Volume 85.8 84.0 Mean Corpuscular Hemoglobin 28.7 28.6 Mean Corpuscular Hemoglobin 33.4 34.0 Concent Red Cell Distribution Width 15.9 16.1 Platelet Count 67 83 Mean Platelet Volume 8.6 8.9 Sodium Level 144 Potassium Level 3.5 Chloride Level 110 Carbon Dioxide Level 25.8 Anion Gap 8 Blood Urea Nitrogen 21 Creatinine 0.73 Estimat Glomerular Filtration 105 Rate Random Glucose 132 Calcium Level 7.8 Assessment and Plan Plan POD#1 s/p TAAA with MEAGAN reimplantation 1. OOB TC with PT 2. clear liq diet 3. Diurese 4. Vora out 5. ICU until tomorrow Discharge Planning 5-7 days Obdulio Benjamin MD Feb 21, 2017 08:23
[2017-02-21] MEDS ORDERED: FUROSEMIDE 20 MG/2 ML VIAL IV PUSH ONE (08:30)
[2017-02-21] MEDS ORDERED: POTASSIUM CHLORIDE 10 MEQ CONTROLLED RELEASE TAB PO ONE (08:30)
[2017-02-21] MEDS: TOPIRAMATE 100 MG TAB PO SCH (08:57)
[2017-02-21] MEDS: CEFEPIME INJ 2,000 MG in SODIUM CHLORIDE 0.9% INJ 100 ML IV SCH ×2 (08:57→19:53)
[2017-02-21] MEDS ORDERED: HEPARIN SODIUM - SQ 10,000 UNITS/ML VIAL SQ SCH (09:00)
[2017-02-21] MEDS: FAMOTIDINE 20 MG/2 ML VIAL IV SCH ×2 (10:50→22:05)
[2017-02-21] MEDS: ASPIRIN 81 MG CHEW TAB PO SCH (10:51)
--- NOTE | 2017-02-21 11:27 | HHI.CCPN ---
Subjective Remarks/Hospital Course 76 yo male with past medical history significant for diabetes, hypertension, coronary artery disease status post CABG, chronic kidney disease who was admitted today to Dr. Benjamin. Patient has a known 7.8 cm AAA. He underwent elective open retroperitoneal repair of AAA with 24x12 Dacron, and MEAGAN reimplantation today 02/19/17. Estimated blood loss was 1500mL. Received 4L crystalloid and 725 mL cell saver. I met the patient in the ICU postop. He slightly groggy from pain medication but follows commands. Urine output is excellent. Patient's blood pressure target his 90-120 systolic. He received 20 mg of hydralazine for a blood pressure of 160 systolic, which made him hypotensive and now getting 1L fluid bolus. Left thoracoabdominal incision clean without bleeding. Few minutes after I had evaluated the patient, a Halicat and was called as the patient became unresponsive and hypotensive. Patient was give 2 L of crystalloid bolus, 0.4 mg IV Narcan x2 and was briefly bagged. Also 2U PRBC given. SUBJ 02/20: Patient better clinically. Hemodynamically stable. Urine output remains good. Good peripheral pulses left DP/PT by Doppler. Lactic acid was 2.8 yesterday repeat today 02/21: No acute events overnight, blood pressure well controlled. Sitting up in chair oriented. Lactic acidcleared. Currently adequate. IV Lasix [address] Benjamin Objective Vital Signs Date Time Temp Pulse Resp B/P Pulse Ox O2 Delivery O2 Flow Rate FiO2 02/21/17 09:47 95 Nasal Cannula 2.00 02/21/17 08:00 98.3 99 20 138/73 148/67 Intake and Output 02/20/17 02/20/17 02/20/17 07:59 15:59 23:59 Intake Total 2248 ml 950 ml Output Total 930 ml 521 ml Balance 1318 ml 429 ml Result Diagram: 02/21/17 0400 02/21/17 0400 Objective Remarks GENERAL: Well-nourished, well-developed male in no acute distress, sitting up in chair HEENT: Normocephalic, atraumatic. Pupils equal, round and reactive. CARDIOVASCULAR: Regular rate and rhythm without murmurs, gallops, or rubs. RESPIRATORY: Clear to auscultation. No wheezes, rales, or rhonchi. GASTROINTESTINAL: Abdomen soft, non-tender, nondistended. Large left sided vertical thoracoabdominal incision clean dry, L chest tube with 150 ml output in 24 hours EXTREMITIES: No lower extremity edema. Right DP, PT pulses palpable, L DP, PT felt by Doppler PSYCH: Alert and oriented x 3. No FND A/P Assessment and Plan NEURO: - Morphine 1-2 mg IV PRN and Tylenol when necessary for pain control - Otherwise minimize sedation RESP: - Nasal cannula oxygen, incentive spirometry. - EzPAP, Acapella. Aggressive pulmonary toilet - DuoNeb every 6 hours when necessary - Left chest tube with 150 ml output in 24 hours CV: s/p open AAA repair Hypertension Lactic acidosis, mild - Received 4 L crystalloids in the OR and 2L post op in ICU. - Urine output is adequate. Lactic acid was 2.8. repeat 1 on 02/20 - DC LR at 84 ml. IV Lasix 20 mg x 1 per - Resume aspirin 02/21/[address] Benjamin. Lipitor resumed - Target systolic blood pressure 110-[address] Benjamin, use when necessary hydralazine GI: - Clear liquid diet, Pepcid : - Monitor renal function closely. DC Vora catheter. - Renal ischemia time 24 min, watch for ATN - Urine output and creatinine remain stable - IV Lasix [address] Benjamin ID: - Monitor for infection. Empiric cefepime started for LLL infiltrate. DC if cultures negative HEME: - Monitor CBC, CMP, coags - EBL was 1.5 L, received 750 mL of Cell Saver - 2U PRBC given post op in ICU 02/19 - Monitor CBC- up trending today ENDO: - Sliding-scale insulin, electrolyte replacement per protocol PROPH: - s/q heparin when platelet count >90. Pepcid 20 mg BID LINES: - Utilize peripheral IVs, central line if needed Level 2 Continue ICU care for another 24 hours and re evaluate PT OOB. JUAN Vora DC art line Bing Perez MD Feb 21, 2017 11:27
[2017-02-21] MEDS: ACETAMINOPHEN/HYDROcodone 325 MG/7.5 MG TAB PO PRN ×2 (16:18→23:48)
[2017-02-21 16:28] LABS: AUTOMATED NEUTROPHIL # 11.5 TH/MM3 (1.8-7.7); BASOPHIL % 0.2 % (0.0-2.0); EOSINOPHIL % 0.1 % (0.0-4.0); HEMATOCRIT 33.1 % (39.0-51.0); LYMPH % 9.9 % (9.0-44.0); LYMPHOCYTE # 1.5 TH/MM3 (1.0-4.8); MEAN CELL VOLUME 84.7 FL (80.0-100.0); MEAN CORPUSCULAR HEMOGLOBIN 28.6 PG (27.0-34.0); MEAN CORPUSCULAR HGB CONC 33.8 % (32.0-36.0); MONO % 13.8 % (0.0-8.0); PLATELET COUNT 95 TH/MM3 (150-450); RED BLOOD COUNT 3.91 MIL/MM3 (4.50-5.90); RED CELL DISTRIBUTION WIDTH 15.9 % (11.6-17.2); WHITE BLOOD COUNT 15.1 TH/MM3 (4.0-11.0)
[2017-02-21 16:32] LABS: HEMO FLAGS AUTO DIFF
[2017-02-21 17:02] LABS: SCAN/DIFF AUTO DIFF CONFIRMED
[2017-02-21] MEDS: MAGNESIUM HYDROXIDE SUSP 30 ML CUP PO PRN (17:06)
[2017-02-21] MEDS: HEPARIN SODIUM - SQ 10,000 UNITS/ML VIAL SQ SCH (20:59)
[2017-02-21] MEDS: ATORVASTATIN 40 MG TAB PO SCH (21:00)
[2017-02-22] VITALS (8 sets, daily range): BP systolic 125–149; BP diastolic 72–85; PULSE 74–99; RESP 15–21; TEMP 97.6–99.1; O2SAT 93–98
[2017-02-22 04:38] LABS: HEMATOCRIT 28.9 % (39.0-51.0); MEAN CELL VOLUME 84.6 FL (80.0-100.0); MEAN CORPUSCULAR HEMOGLOBIN 29.3 PG (27.0-34.0); MEAN CORPUSCULAR HGB CONC 34.6 % (32.0-36.0); PLATELET COUNT 78 TH/MM3 (150-450); RED BLOOD COUNT 3.41 MIL/MM3 (4.50-5.90); RED CELL DISTRIBUTION WIDTH 15.4 % (11.6-17.2)
[2017-02-22 04:42] LABS: REVIEW FLAG FINAL
[2017-02-22 05:00] LABS: BICARBONATE 28.7 MEQ/L (21.0-32.0); POTASSIUM 3.7 MEQ/L (3.5-5.1)
[2017-02-22] MEDS: HEPARIN SODIUM - SQ 10,000 UNITS/ML VIAL SQ SCH ×2 (05:51→22:00)
[2017-02-22] MEDS: MORPHINE SULFATE 4 MG/ML INJ IV PRN (05:58)
[2017-02-22] MEDS: LOW DOSE INSULIN NOVOLIN REGULAR SUPPLEMENTAL SCALE SQ SCH ×3 (06:21→21:00)
[2017-02-22] MEDS: ACETAMINOPHEN/HYDROcodone 325 MG/7.5 MG TAB PO PRN ×3 (07:48→21:08)
--- NOTE | 2017-02-22 08:26 | HHI.CCPN ---
Subjective Remarks/Hospital Course 76 yo male with past medical history significant for diabetes, hypertension, coronary artery disease status post CABG, chronic kidney disease who was admitted today to Dr. Benjamin. Patient has a known 7.8 cm AAA. He underwent elective open retroperitoneal repair of AAA with 24x12 Dacron, and MEAGAN reimplantation today 02/19/17. Estimated blood loss was 1500mL. Received 4L crystalloid and 725 mL cell saver. [facility] met the patient in the ICU postop. He slightly groggy from pain medication but follows commands. Urine output is excellent. Patient's blood pressure target his 90-120 systolic. He received 20 mg of hydralazine for a blood pressure of 160 systolic, which made him hypotensive and now getting 1L fluid bolus. Left thoracoabdominal incision clean without bleeding. Few minutes after I had evaluated the patient, a Halicat and was called as the patient became unresponsive and hypotensive. Patient was give 2 L of crystalloid bolus, 0.4 mg IV Narcan x2 and was briefly bagged. Also 2U PRBC given. 02/20: Patient better clinically. Hemodynamically stable. Urine output remains good. Good peripheral pulses left DP/PT by Doppler. Lactic acid was 2.8 yesterday repeat today 02/21: No acute events overnight, blood pressure well controlled. Sitting up in chair oriented. Lactic acidcleared. Currently adequate. IV Lasix [address] Benjamin Subjective: 02/22 Stood up and walked a few steps to chair. Not ambulating halls yet. States his appetite is baseline but says he is "not a big eater". +flatus. No BM yet but says he feels like may soon...deals with constipation at home that he attributes to opioid use. Requests increase Lortab to q4 hours (home dose) because still requiring intermittent morphine due to pain at chest tube site. Voiding. CT waterseal with no airleak, output 10 ml Objective Vital Signs Date Time Temp Pulse Resp B/P Pulse Ox O2 Delivery O2 Flow Rate FiO2 02/22/17 07:00 98.0 74 16 149/72 94 02/22/17 07:00 Room Air 02/21/17 21:32 21 02/21/17 09:47 2.00 Intake and Output 02/21/17 02/21/17 02/22/17 08:00 16:00 00:00 Intake Total 1080 ml 1200 ml Output Total 1200 ml 1000 ml Balance -120 ml 200 ml Result Diagram: 02/22/1742502/22/17425 Objective Remarks GENERAL: Well-nourished, well-developed patient who is sitting up in bedside chair, talkative and very pleasant. Eating tray of clear liquids SKIN: Warm and dry. HEAD: Atraumatic. Normocephalic. EYES: Pupils equal and round. No scleral icterus. No injection or drainage. ENT: No nasal bleeding or discharge. Mucous membranes pink and moist. NECK: Trachea midline. No JVD. CARDIOVASCULAR: Regular rate and rhythm. No murmurs rubs or gallops. RESPIRATORY: Chest tube in place on the left is to water seal with no air leak. Output 10 mL of serosanguineous. Pleural rub on the left lateral wall. Remainder lung sounds are clear. GASTROINTESTINAL: Abdomen soft, non-tender, nondistended. Bowel sounds are present. Large left sided vertical thoracoabdominal incision clean, dry, intact. MUSCULOSKELETAL: Extremities without clubbing, cyanosis, or edema. Feet are warm with palpable Right DP, PT pulses palpable L DP was palpable but weaker than right, Right PT dopplerable. NEUROLOGICAL: Awake and alert. No obvious cranial nerve deficits. Motor grossly within normal limits. Five out of 5 muscle strength in the arms and legs. Normal speech. Oriented x4, slight word finding difficulty on occasion but carries on lengthy conversations. A/P Assessment and Plan NEURO: - Increase lortab to q4 hours. Morphine 1-2 mg IV PRN and Tylenol when necessary for pain control -Topamax 100 mg po daily RESP: - On room air, incentive spirometry. - EzPAP, Acapella. Aggressive pulmonary toilet - DuoNeb every 6 hours when necessary - Left chest tube with 20 ml output in 24 hours. No air leak. Check cxr. CV: s/p open AAA repair Hypertension Hyperlipidemia Lactic acidosis, mild - Received 4 L crystalloids in the OR and 2L post op in ICU. - Urine output is adequate. Lactic acid was 2.8. repeat 1 on 02/20 - Off MIVF . IV Lasix 20 mg x 1 per . Voiding - On aspirin 02/21/[address] Benjamin. Lipitor resumed - Target systolic blood pressure 110-[address] Benjamin, use when necessary hydralazine -Atorvastatin 40 mg by mouth daily at bedtime GI: - Clear liquid diet, Pepcid : - Renal ischemia time 24 min - IV Lasix [address] Benjamin 02/21. Voiding and creatinine is stable ID: - Monitor for infection. Empiric cefepime started for LLL infiltrate 02/19 #4. CXR improved and overall doing well. Would d/c soon after short course, will confer with Dr. Benjamin. HEME: - Monitor CBC, CMP, coags - EBL was 1.5 L, received 750 mL of Cell Saver - 2U PRBC given post op in ICU 02/19 - Monitor CBC- up trending today ENDO: - Sliding-scale insulin, electrolyte replacement per protocol PROPH: - s/q heparin when platelet count >90. Pepcid 20 mg BID, change to po LINES: - Utilize peripheral IVs OOB. Followup CXR with subdiaphragmatic free air (vs subpulmonic PTX). Dr. Dent discussed with me, place CT to -20 cm suction and repeat CXR in am. States patient to remain in CVICU Level 2 Sherri Meza MD Feb 22, 2017 08:26
[2017-02-22] MEDS: CEFEPIME INJ 2,000 MG in SODIUM CHLORIDE 0.9% INJ 100 ML IV SCH ×2 (08:49→21:08)
[2017-02-22] MEDS: TOPIRAMATE 100 MG TAB PO SCH (08:49)
[2017-02-22] MEDS: FAMOTIDINE 20 MG/2 ML VIAL IV SCH ×2 (08:49→21:08)
[2017-02-22] MEDS: ASPIRIN 81 MG CHEW TAB PO SCH (08:50)
[2017-02-22] MEDS ORDERED: DOCUSATE SODIUM 50 MG/SENNA 8.6 MG TAB PO ONE (11:15)
--- NOTE | 2017-02-22 11:54 | PD.VS.PN ---
Subjective Procedure(s): TAAA and MEAGAN reimplantation Subjective/Hospital Course looks good; pain controlled having flatus, nausea subsided. Has urinated since catheter removed. Objective Vascular: extremities are warm. Left chest tube in place. No air leak. left TA incision intact. Laboratory Laboratory Tests Test 02/21/17 02/22/17 16:00 04:26 White Blood Count 15.1 11.0 Red Blood Count 3.91 3.41 Hemoglobin 11.2 10.0 Hematocrit 33.1 28.9 Mean Corpuscular Volume 84.7 84.6 Mean Corpuscular Hemoglobin 28.6 29.3 Mean Corpuscular Hemoglobin 33.8 34.6 Concent Red Cell Distribution Width 15.9 15.4 Platelet Count 95 78 Mean Platelet Volume 8.5 8.3 Neutrophils (%) (Auto) 76.0 Lymphocytes (%) (Auto) 9.9 Monocytes (%) (Auto) 13.8 Eosinophils (%) (Auto) 0.1 Basophils (%) (Auto) 0.2 Neutrophils # (Auto) 11.5 Lymphocytes # (Auto) 1.5 Monocytes # (Auto) 2.1 Eosinophils # (Auto) 0.0 Basophils # (Auto) 0.0 CBC Comment AUTO DIFF Differential Comment AUTO DIFF CONFIRMED Sodium Level 139 Potassium Level 3.7 Chloride Level 108 Carbon Dioxide Level 28.7 Anion Gap 2 Blood Urea Nitrogen 19 Creatinine 0.64 Estimat Glomerular Filtration 122 Rate Random Glucose 102 Calcium Level 7.5 Assessment and Plan Plan s/p TAAA with MEAGAN reimplantation Advance diet. Continue PT. Can be downgraded to CIC. Chest tube out early next week. Discharge Planning 5-7 days Wilfredo Dent DO Feb 22, 2017 11:54
--- NOTE | 2017-02-22 12:01 | RADRPT ---
EXAM DATE/TIME: 02/22/2017 11:35 [facility] COMPARISON: CHEST SINGLE AP, February 20, 2017, 4:58. INDICATIONS : Short of breath. MEDICAL HISTORY : Cardiovascular disease. Hypertension Aneurysm, abdominal. SURGICAL HISTORY : Abdominal aortic aneurysm repair. Hernia repair ENCOUNTER: Subsequent ACUITY: 3 days PAIN SCORE: 0/10 LOCATION: Bilateral chest FINDINGS: A single view of the chest demonstrates the lungs to be symmetrically aerated without evidence of mas s, infiltrate or effusion. The cardiomediastinal contours are unremarkable. Osseous structures are intact. Left-sided chest tube without pneumothorax. There is air underneath the right hemidiaphragm c ould be subpulmonic pneumothorax versus pneumoperitoneum. CONCLUSION: 1. Air underneath the right hemidiaphragm could be pneumoperitoneum versus less likely subpulmonic pn eumothorax. 2. Status post CABG. 3. Left-sided chest tube with no pneumothorax. Ramsey Martinez MD on February 22, 2017 at 11:58 Board Certified Radiologist. This report was verified electronically.
[2017-02-22] MEDS ORDERED: FUROSEMIDE 20 MG TAB PO ONE (16:00)
[2017-02-22] MEDS: ATORVASTATIN 40 MG TAB PO SCH (21:09)
[2017-02-22] MEDS: DOCUSATE SODIUM 100 MG CAP PO SCH (21:09)
[2017-02-23] VITALS (12 sets, daily range): BP systolic 126–147; BP diastolic 71–87; PULSE 77–110; RESP 12–21; TEMP 98.3–99; O2SAT 93–99
[2017-02-23] MEDS: MORPHINE SULFATE 4 MG/ML INJ IV PRN ×3 (00:08→21:27)
[2017-02-23 02:56] LABS: BASOPHIL % 0.5 % (0.0-2.0); EOSINOPHIL # 0.1 TH/MM3 (0-0.4); EOSINOPHIL % 1.3 % (0.0-4.0); HEMATOCRIT 29.6 % (39.0-51.0); LYMPH % 17.7 % (9.0-44.0); LYMPHOCYTE # 1.6 TH/MM3 (1.0-4.8); MEAN CELL VOLUME 85.1 FL (80.0-100.0); MEAN CORPUSCULAR HEMOGLOBIN 29.5 PG (27.0-34.0); MEAN CORPUSCULAR HGB CONC 34.7 % (32.0-36.0); MONO % 12.2 % (0.0-8.0); NEUT % 68.3 % (16.0-70.0); PLATELET COUNT 91 TH/MM3 (150-450); RED BLOOD COUNT 3.48 MIL/MM3 (4.50-5.90); RED CELL DISTRIBUTION WIDTH 15.3 % (11.6-17.2); WHITE BLOOD COUNT 8.8 TH/MM3 (4.0-11.0)
[2017-02-23 03:02] LABS: HEMO FLAGS DIFF FINAL
[2017-02-23 03:04] LABS: BICARBONATE 29.5 MEQ/L (21.0-32.0)
--- NOTE | 2017-02-23 05:48 | RADRPT ---
EXAM DATE/TIME: 02/23/2017 03:53 [facility] COMPARISON: CHEST SINGLE AP, February 22, 2017, 11:35. INDICATIONS : Shortness of breath, possible pulmonary disease. MEDICAL HISTORY : Cardiovascular disease. Hypertension Aneurysm, abdominal. SURGICAL HISTORY : Abdominal aortic aneurysm repair. Hernia repair ENCOUNTER: Subsequent ACUITY: 4 - 6 days PAIN SCORE: 5/10 LOCATION: Bilateral chest FINDINGS: A single view of the chest demonstrates the lungs to be symmetrically aerated with a stable position of a left-sided thoracostomy tube. There does appear to be a very small, 1.4 cm left apical pneumotho rax. Lungs are otherwise clear. Intact median sternotomy wires. Air subjacent to the right hemidiaphragm is less prominent on current exam. Osseous structures are intact CONCLUSION: 1. Left-sided thoracostomy tube is unchanged in position. There does appear to be a small, 1.4 cm lef t apical pneumothorax. 2. Decreasing air subjacent to the right hemidiaphragm.. Ernesto Hernandez MD on February 23, 2017 at 5:44 Board Certified Radiologist. This report was verified electronically.
[2017-02-23] MEDS: LOW DOSE INSULIN NOVOLIN REGULAR SUPPLEMENTAL SCALE SQ SCH ×4 (07:00→21:00)
[2017-02-23] MEDS: CEFEPIME INJ 2,000 MG in SODIUM CHLORIDE 0.9% INJ 100 ML IV SCH ×2 (08:00→21:40)
[2017-02-23] MEDS: DOCUSATE SODIUM 100 MG CAP PO SCH ×2 (09:00→21:26)
[2017-02-23] MEDS: MAGNESIUM HYDROXIDE SUSP 30 ML CUP PO PRN (09:00)
[2017-02-23] MEDS: FAMOTIDINE 20 MG/2 ML VIAL IV SCH (09:00)
[2017-02-23] MEDS: ASPIRIN 81 MG CHEW TAB PO SCH (09:00)
[2017-02-23] MEDS: TOPIRAMATE 100 MG TAB PO SCH (09:00)
[2017-02-23] MEDS: ACETAMINOPHEN/HYDROcodone 325 MG/7.5 MG TAB PO PRN ×2 (10:40→18:07)
--- NOTE | 2017-02-23 13:28 | PD.VS.PN ---
Subjective Procedure(s): TAAA and MEAGAN reimplantation Subjective/Hospital Course looks good; pain controlled. Tolerated diet. Had Small Bowel movement. Urinated and toilet and flushed so Urine output may be underestimated. Objective Vascular: left sided incision intact. Chest tube intact. No air leak. Laboratory Laboratory Tests Test 02/23/17 02:32 White Blood Count 8.8 Red Blood Count 3.48 Hemoglobin 10.3 Hematocrit 29.6 Mean Corpuscular Volume 85.1 Mean Corpuscular Hemoglobin 29.5 Mean Corpuscular Hemoglobin Concent 34.7 Red Cell Distribution Width 15.3 Platelet Count 91 Mean Platelet Volume 8.7 Neutrophils (%) (Auto) 68.3 Lymphocytes (%) (Auto) 17.7 Monocytes (%) (Auto) 12.2 Eosinophils (%) (Auto) 1.3 Basophils (%) (Auto) 0.5 Neutrophils # (Auto) 6.0 Lymphocytes # (Auto) 1.6 Monocytes # (Auto) 1.1 Eosinophils # (Auto) 0.1 Basophils # (Auto) 0.0 CBC Comment DIFF FINAL Differential Comment Blood Urea Nitrogen 13 Creatinine 0.67 Random Glucose 102 Calcium Level 8.0 Sodium Level 139 Potassium Level 4.0 Chloride Level 105 Carbon Dioxide Level 29.5 Anion Gap 5 Estimat Glomerular Filtration Rate 116 Imaging Last 48 hours Impressions Chest X-Ray 02/23/17 0000 Signed Impressions: Service Date/Time: Thursday, February 23, 2017 03:53 - CONCLUSION: 1. Left-sided thoracostomy tube is unchanged in position. There does appear to be a small, 1.4 cm left apical pneumothorax. 2. Decreasing air subjacent to the right hemidiaphragm.. Ernesto Hernandez MD Chest X-Ray 02/22/17 0000 Signed Impressions: Service Date/Time: Wednesday, February 22, 2017 11:35 - CONCLUSION: 1. Air underneath the right hemidiaphragm could be pneumoperitoneum versus less likely subpulmonic pneumothorax. 2. Status post CABG. 3. Left-sided chest tube with no pneumothorax. Ramsey Martinez MD Assessment and Plan Plan s/p TAAA with MEAGAN reimplantation Neurologically intact Slightly tachycardic but resolved once back from the bathroom. Chest tube with about 20 cc/hr [place]. (H/H) stable status post transfusion 48 hours ago. Left apical PTX is small on cxr. Will place back on suction until am. Tolerating diet and plan for continued PT. Otherwise, advancing appropriately. Discharge Planning 5-7 days Wilfredo Dent DO Feb 23, 2017 13:28
[2017-02-23] MEDS: HEPARIN SODIUM - SQ 10,000 UNITS/ML VIAL SQ SCH ×2 (14:00→21:26)
--- NOTE | 2017-02-23 14:47 | HHI.CCPN ---
Subjective Remarks/Hospital Course 76 yo male with past medical history significant for diabetes, hypertension, coronary artery disease status post CABG, chronic kidney disease who was admitted today to Dr. Benjamin. Patient has a known 7.8 cm AAA. He underwent elective open retroperitoneal repair of AAA with 24x12 Dacron, and MEAGAN reimplantation today 02/19/17. Estimated blood loss was 1500mL. Received 4L crystalloid and 725 mL cell saver. [facility] met the patient in the ICU postop. He slightly groggy from pain medication but follows commands. Urine output is excellent. Patient's blood pressure target his 90-120 systolic. He received 20 mg of hydralazine for a blood pressure of 160 systolic, which made him hypotensive and now getting 1L fluid bolus. Left thoracoabdominal incision clean without bleeding. Few minutes after I had evaluated the patient, a Herreraicat and was called as the patient became unresponsive and hypotensive. Patient was give 2 L of crystalloid bolus, 0.4 mg IV Narcan x2 and was briefly bagged. Also 2U PRBC given. 02/20: Patient better clinically. Hemodynamically stable. Urine output remains good. Good peripheral pulses left DP/PT by Doppler. Lactic acid was 2.8 yesterday repeat today 02/21: No acute events overnight, blood pressure well controlled. Sitting up in chair oriented. Lactic acidcleared. Currently adequate. IV Lasix [address] Benjamin 02/22 Stood up and walked a few steps to chair. Not ambulating halls yet. States his appetite is baseline but says he is "not a big eater". +flatus. No BM yet but says he feels like may soon...deals with constipation at home that he attributes to opioid use. Requests increase Lortab to q4 hours (home dose) because still requiring intermittent morphine due to pain at chest tube site. Voiding. CT waterseal with no airleak, output 10 ml Subjective: 02/23 CT was placed back to suction yesterday due to subdiaphragmatic air. CXR this morning with improvement in subdiaphragmatic air. Small apical PTX present. Increased drainage from CT now, serosanginous 170 output, RN states 20/ hr during day shift today. Had a BM today and states he had to strain which is a common issue for him. He has sinus tachycardia today 110-120s which pt attributes to distress from trying to strain to have a BM. Hgb is 10.3 and creatinine stable. UOP was 2550 last 24 hours after gentle diuresis with lasix, still voiding well . Still with pain at chest tube site. Objective Vital Signs Date Time Temp Pulse Resp B/P (MAP) Pulse Ox O2 Delivery O2 Flow Rate FiO2 02/23/17 11:40 18 02/23/17 03:00 98.3 77 126/71 (89) 93 02/23/17 03:00 Room Air 02/22/17 21:10 21 02/21/17 09:47 2.00 Intake and Output 02/23/17 02/23/17 02/23/17 07:59 15:59 23:59 Intake Total 580 ml Output Total 1300 ml Balance -720 ml Result Diagram: 02/23/1723102/23/17231 Objective Remarks GENERAL: Well-nourished, well-developed patient who is sitting up in bedside chair, talkative and very pleasant, perseverating on issues with having BM. SKIN: Warm and dry, well perfused. HEAD: Atraumatic. Normocephalic. EYES: Pupils equal and round. No scleral icterus. No injection or drainage. ENT: No nasal bleeding or discharge. Mucous membranes pink and moist. NECK: Trachea midline. No JVD. CARDIOVASCULAR: Regular rate and rhythm. No murmurs rubs or gallops. RESPIRATORY: Chest tube in place on the left is to water seal with no air leak. Output 1 serosanguineous. Pleural rub on the left lateral wall. Remainder lung sounds are clear. GASTROINTESTINAL: Abdomen soft, non-tender, nondistended. Bowel sounds are present. Large left sided vertical thoracoabdominal incision clean, dry, intact. MUSCULOSKELETAL: Extremities without clubbing, cyanosis, or edema. Feet are warm with palpable Right DP, PT pulses palpable L DP was palpable but weaker than right, Right PT dopplerable. NEUROLOGICAL: Awake and alert. No obvious cranial nerve deficits. Motor grossly within normal limits. Five out of 5 muscle strength in the arms and legs. Normal speech. Oriented x4, slight word finding difficulty on occasion but carries on lengthy conversations. A/P Assessment and Plan NEURO: - Continue lortab to q4 hours. Morphine 1-2 mg IV PRN and Tylenol when necessary for pain control -Topamax 100 mg po daily RESP: Small apical PTX Subdiaphragmatic free air - On room air, incentive spirometry. - EzPAP, Acapella. Aggressive pulmonary toilet - DuoNeb every 6 hours when necessary - Left chest tube with 170 ml output in 24 hours. No air leak. Small apical PTX. Discussed with Dr. Dent, keeping CT to suction and continue to monitor. CV: s/p open AAA repair Hypertension Hyperlipidemia Lactic acidosis, mild - Received 4 L crystalloids in the OR and 2L post op in ICU. - Urine output is adequate. Lactic acid was 2.8. repeat 1 on 02/20 - Off MIVF . IV Lasix 20 mg on 02/21 and 02/22. -Now with sinus tachycardia which may be due to pain/anxiety and patient feels this may be the case. Will hold off on further diuresis. Consider betablocker if remains tachycardic/htn. D/c hydralazine prn as this can cause reflex tachycardia. Labetalol if needed. - Target systolic blood pressure 110-140 - On aspirin 02/21/[address] Benjamin. Lipitor resumed -Atorvastatin 40 mg by mouth daily at bedtime GI: - Clear liquid diet, Pepcid : - Renal ischemia time 24 min - IV Lasix [address] Benjamin 02/21. Given 20 po on 02/22. Voiding and creatinine is stable ID: - Monitor for infection. Empiric cefepime started for LLL infiltrate 02/19 #5 but with clinical and radiographic improvement overall, will d/c. HEME: - Monitor CBC, CMP, coags - EBL was 1.5 L, received 750 mL of Cell Saver - 2U PRBC given post op in ICU 02/19 ENDO: - Sliding-scale insulin, not requiring coverage. electrolyte replacement per protocol PROPH: - heparin 5000 subcut., hold order if <90. Pepcid 20 mg BID po. LINES: - Utilize peripheral IVs OOB. Discussed with Dr. Dent who states patient will remain in ICU today. Level 2 Sherri Meza MD Feb 23, 2017 14:47
[2017-02-23] MEDS ORDERED: LABETALOL HCL 100 MG/20 ML VIAL IV PRN (15:30)
[2017-02-23] MEDS: ATORVASTATIN 40 MG TAB PO SCH (21:26)
[2017-02-23] MEDS: FAMOTIDINE 20 MG TAB PO SCH (21:26)
[2017-02-24] VITALS (25 sets, daily range): BP systolic 122–151; BP diastolic 76–87; PULSE 77–114; RESP 14–20; TEMP 98–98.5; O2SAT 95–100
[2017-02-24] MEDS: ACETAMINOPHEN/HYDROcodone 325 MG/7.5 MG TAB PO PRN ×5 (00:03→18:54)
--- NOTE | 2017-02-24 05:01 | RADRPT ---
EXAM DATE/TIME: 02/24/2017 04:02 [facility] COMPARISON: CHEST SINGLE AP, February 23, 2017, 3:53. INDICATIONS : Shortness of breath, possible pulmonary disease. MEDICAL HISTORY : Cardiovascular disease. Hypertension Aneurysm, abdominal. SURGICAL HISTORY : Abdominal aortic aneurysm repair. Hernia repair ENCOUNTER: Subsequent ACUITY: 1 week PAIN SCORE: 1/10 LOCATION: Bilateral chest FINDINGS: Left chest tube remains present with small left apical pneumothorax. No significant right pneumothora x on the current exam. Previous median sternotomy. Mild basilar atelectasis. CONCLUSION: 1. Left chest tube with small residual left apical pneumothorax. No significant effusion. Benjamin Samuel MD on February 24, 2017 at 4:58 Board Certified Radiologist. This report was verified electronically.
[2017-02-24] MEDS: LOW DOSE INSULIN NOVOLIN REGULAR SUPPLEMENTAL SCALE SQ SCH ×4 (06:14→21:00)
[2017-02-24 06:52] LABS: MEAN CELL VOLUME 85.7 FL (80.0-100.0); MEAN CORPUSCULAR HEMOGLOBIN 29.6 PG (27.0-34.0); MEAN CORPUSCULAR HGB CONC 34.5 % (32.0-36.0); PLATELET COUNT 111 TH/MM3 (150-450); RED BLOOD COUNT 3.38 MIL/MM3 (4.50-5.90); REVIEW FLAG FINAL; WHITE BLOOD COUNT 7.5 TH/MM3 (4.0-11.0)
[2017-02-24 06:54] LABS: BICARBONATE 26.9 MEQ/L (21.0-32.0); POTASSIUM 3.8 MEQ/L (3.5-5.1)
[2017-02-24] MEDS: HEPARIN SODIUM - SQ 10,000 UNITS/ML VIAL SQ SCH ×3 (07:15→22:19)
[2017-02-24] MEDS: DOCUSATE SODIUM 100 MG CAP PO SCH ×2 (09:00→21:00)
[2017-02-24] MEDS: FAMOTIDINE 20 MG TAB PO SCH ×2 (09:10→22:20)
[2017-02-24] MEDS: TOPIRAMATE 100 MG TAB PO SCH (09:10)
[2017-02-24] MEDS: ASPIRIN 81 MG CHEW TAB PO SCH (09:10)
[2017-02-24] MEDS: MORPHINE SULFATE 4 MG/ML INJ IV PRN ×2 (09:14→22:20)
--- NOTE | 2017-02-24 10:17 | PD.VS.PN ---
Subjective POD #: 5 Procedure(s): TAAA and MEAGAN reimplantation Subjective/Hospital Course Sitting in chair, feels well pain controlled ambulated small PTX on XRay. Objective Vitals/I&O Date Time Temp Pulse Resp B/P (MAP) Pulse Ox O2 Delivery O2 Flow Rate FiO2 02/24/17 10:00 103 02/24/17 09:23 98 02/24/17 09:00 84 02/24/17 08:00 86 02/24/17 07:00 98.0 87 20 133/77 (95) 98 02/24/17 07:00 94 02/24/17 07:00 98 Room Air 02/24/17 05:00 78 02/24/17 04:00 78 02/24/17 03:00 98 Room Air 02/24/17 03:00 80 02/24/17 03:00 98.5 90 14 122/76 (91) 98 02/24/17 02:00 86 02/24/17 01:00 86 02/24/17 00:00 92 02/23/17 23:30 99 Room Air 02/23/17 23:00 98.5 91 18 147/78 (101) 99 02/23/17 23:00 94 02/23/17 22:00 90 02/23/17 21:00 92 02/23/17 20:18 98.7 96 12 146/85 (105) 98 02/23/17 20:00 97 02/23/17 20:00 98 Room Air 02/23/17 19:00 98 02/23/17 18:00 104 02/23/17 17:08 98 02/23/17 15:54 98.4 97 20 127/87 (100) 98 02/23/17 15:54 98 Nasal Cannula 02/23/17 15:00 99.0 103 18 132/78 (96) 02/23/17 15:00 110 02/23/17 15:00 Room Air 02/23/17 14:46 97 21 02/23/17 11:40 18 02/24/17 02/24/17 02/24/17 06:59 14:59 22:59 Intake Total 700 ml Output Total 1390 ml Balance -690 ml Exam: palpable femoral pulses incision c/d/i Laboratory Laboratory Tests Test 02/24/17 04:45 White Blood Count 7.5 Red Blood Count 3.38 Hemoglobin 10.0 Hematocrit 29.0 Mean Corpuscular Volume 85.7 Mean Corpuscular Hemoglobin 29.6 Mean Corpuscular Hemoglobin Concent 34.5 Red Cell Distribution Width 15.0 Platelet Count 111 Mean Platelet Volume 8.7 Blood Urea Nitrogen 11 Creatinine 0.56 Random Glucose 90 Calcium Level 7.8 Sodium Level 141 Potassium Level 3.8 Chloride Level 108 Carbon Dioxide Level 26.9 Anion Gap 6 Estimat Glomerular Filtration Rate 143 Assessment and Plan Plan s/p TAAA with MEAGAN reimplantation looks great CT out tomorrow d/c later tomorrow Discharge Planning Obdulio Barnes MD Feb 24, 2017 10:17
[2017-02-24] MEDS: ATORVASTATIN 40 MG TAB PO SCH (22:20)
[2017-02-25] VITALS (27 sets, daily range): BP systolic 112–158; BP diastolic 75–90; PULSE 74–104; RESP 20; TEMP 98.1–99; O2SAT 98–100
--- NOTE | 2017-02-25 04:50 | RADRPT ---
EXAM DATE/TIME: 02/25/2017 04:22 [facility] COMPARISON: CHEST SINGLE AP, February 24, 2017, 4:02. INDICATIONS : Short of breath. MEDICAL HISTORY : Cardiovascular disease. Hypertension Aneurysm, abdominal. SURGICAL HISTORY : Abdominal aortic aneurysm repair. Hernia repair ENCOUNTER: Subsequent ACUITY: 4 - 6 days PAIN SCORE: 0/10 LOCATION: Bilateral chest FINDINGS: A single view of the chest demonstrates left-sided chest tube with tiny left apical pneumothorax. Min imal basilar atelectasis. Previous median sternotomy. Tortuous aorta. CONCLUSION: 1. Left chest tube with tiny left apical pneumothorax unchanged from February 24. Benjamin Samuel MD on February 25, 2017 at 4:48 Board Certified Radiologist. This report was verified electronically.
[2017-02-25] MEDS: ACETAMINOPHEN/HYDROcodone 325 MG/7.5 MG TAB PO PRN ×5 (05:29→21:55)
[2017-02-25] MEDS: HEPARIN SODIUM - SQ 10,000 UNITS/ML VIAL SQ SCH ×3 (05:43→21:56)
[2017-02-25] MEDS: LOW DOSE INSULIN NOVOLIN REGULAR SUPPLEMENTAL SCALE SQ SCH ×4 (06:19→21:00)
[2017-02-25] MEDS: TOPIRAMATE 100 MG TAB PO SCH (08:35)
[2017-02-25] MEDS: FAMOTIDINE 20 MG TAB PO SCH ×2 (08:35→21:55)
[2017-02-25] MEDS: ASPIRIN 81 MG CHEW TAB PO SCH (08:36)
[2017-02-25] MEDS: DOCUSATE SODIUM 100 MG CAP PO SCH ×2 (08:36→21:00)
--- NOTE | 2017-02-25 09:46 | PD.VS.PN ---
Subjective POD #: 6 Procedure(s): TAAA and MEAGAN reimplantation Subjective/Hospital Course Pt transferred from chair to bed w/o difficulty Pain Controlled Chest tube in place Pt w/o any c/o SOB/CP Objective Vitals/I&O Date Time Temp Pulse Resp B/P (MAP) Pulse Ox O2 Delivery O2 Flow Rate FiO2 02/25/17 09:00 98 02/25/17 08:00 97 02/25/17 07:00 99.0 103 20 136/75 (95) 98 02/25/17 07:00 98 Room Air 02/25/17 07:00 89 02/25/17 05:00 88 02/25/17 04:44 98.2 92 20 132/88 (103) 99 02/25/17 04:17 99 Room Air 02/25/17 04:00 76 02/25/17 03:00 79 02/25/17 02:00 88 02/25/17 01:00 86 02/25/17 01:00 98.2 96 20 133/78 (96) 99 02/25/17 01:00 99 Room Air 02/25/17 00:00 88 02/24/17 23:00 95 02/24/17 22:00 92 02/24/17 21:00 106 02/24/17 20:00 98.2 95 20 134/78 (96) 98 02/24/17 20:00 84 02/24/17 20:00 98 Room Air 02/24/17 19:23 95 21 02/24/17 19:00 90 02/24/17 18:00 88 02/24/17 17:00 87 02/24/17 16:10 77 02/24/17 15:00 98 Room Air 02/24/17 15:00 94 02/24/17 15:00 98.4 95 20 150/86 (107) 98 02/24/17 14:00 93 02/24/17 13:00 102 02/24/17 12:00 102 02/24/17 11:00 98 Room Air 02/24/17 11:00 114 02/24/17 11:00 98.3 103 20 151/87 (108) 100 02/24/17 10:00 103 02/25/17 02/25/17 02/25/17 07:00 15:00 23:00 Intake Total 480 ml Output Total 760 ml Balance -280 ml Exam: GENERAL: A&OX3, NAD, GCS 15 SKIN: Warm and dry, Left sided abdominal incision intact with surgical glue/ incisions w/o R/D/S RESPIRATORY: No accessory muscle use. Left sided Chest tube intact with suction GASTROINTESTINAL: Abdomen soft, non-tender, nondistended. MUSCULOSKELETAL: No cyanosis, or edema. Pt w/o SOB/Abdominal/back pain Assessment and Plan Assessment: (1) AAA (abdominal aortic aneurysm) Status: Acute Plan S/P TAAA with MEAGAN reimplantation (POD 6) Pt looks great Plan Chest Tube removed w/o difficulty Chest XR ordered for 1030 (one hour post Chest Tube removal) Pt to lay flat for one hour post Chest tube removal D/C planning to SNF pending XR results Bre BUITRAGO [facility] [phone] Discharge Planning Tomorrow AM to a SNF Bre Edgar Feb 25, 2017 09:46
--- NOTE | 2017-02-25 11:13 | RADRPT ---
EXAM DATE/TIME: 02/25/2017 10:45 [facility] COMPARISON: No previous studies available for comparison. INDICATIONS : Post chest tube removal MEDICAL HISTORY : Cardiovascular disease. Aneurysm, abdominal. Hypertension. SURGICAL HISTORY : Abdominal aortic aneurysm repair. hernia repair ENCOUNTER: Subsequent ACUITY: 4 - 6 days PAIN SCORE: 0/10 LOCATION: Bilateral chest FINDINGS: Aorta is tortuous. There is cardiomegaly. Median sternotomy wires are identified. Lungs are clear. Le ft-sided chest tube has been removed. A small left apical pneumothorax is identified extending to the left fourth posterior rib. CONCLUSION: Small left pneumothorax. Go Francis MD on February 25, 2017 at 11:10 Board Certified Radiologist. This report was verified electronically.
[2017-02-25] MEDS: ATORVASTATIN 40 MG TAB PO SCH (21:55)
[2017-02-26] VITALS (17 sets, daily range): BP systolic 136–153; BP diastolic 63–81; PULSE 77–104; RESP 17–20; TEMP 98.2–98.9; O2SAT 97–100
[2017-02-26] MEDS: HEPARIN SODIUM - SQ 10,000 UNITS/ML VIAL SQ SCH (05:08)
[2017-02-26] MEDS: LOW DOSE INSULIN NOVOLIN REGULAR SUPPLEMENTAL SCALE SQ SCH ×2 (05:08→11:00)
--- NOTE | 2017-02-26 05:41 | RADRPT ---
EXAM DATE/TIME: 02/26/2017 05:08 [facility] COMPARISON: CHEST SINGLE AP, February 25, 2017, 10:45. INDICATIONS : Short of breath. MEDICAL HISTORY : Cardiovascular disease. Aneurysm, abdominal. Hypertension. SURGICAL HISTORY : Abdominal aortic aneurysm repair. hernia repair ENCOUNTER: Subsequent ACUITY: 1 week PAIN SCORE: 0/10 LOCATION: Bilateral chest FINDINGS: There is a small left apical pneumothorax which appear slightly improved compared with February 25. Min imal basilar opacity remains in the lungs. No significant effusion. Heart size normal. Tortuous aorta . CONCLUSION: 1. Improvement in small left apical pneumothorax. Minimal basilar atelectasis. Benjamin Samuel MD on February 26, 2017 at 5:37 Board Certified Radiologist. This report was verified electronically.
[2017-02-26] MEDS: ACETAMINOPHEN/HYDROcodone 325 MG/7.5 MG TAB PO PRN ×2 (08:10→13:41)
--- NOTE | 2017-02-26 09:27 | PD.VS.DC ---
Discharge Summary Admission Date: Feb 19, 2017 at 06:45 Discharge Date: Feb 26, 2017 Admission Diagnosis: (1) AAA (abdominal aortic aneurysm) (2) Diabetes mellitus (3) Hypertension (4) Hyperlipidemia (5) Anxiety and depression (6) Coronary artery disease Discharge Diagnosis: (1) AAA (abdominal aortic aneurysm) ICD Codes: I71.4 - Abdominal aortic aneurysm, without rupture Status: Acute (2) Coronary artery disease ICD Codes: I25.10 - Atherosclerotic heart disease of [place] coronary artery without angina pectoris Status: Chronic (3) Diabetes mellitus ICD Codes: E11.9 - Type 2 diabetes mellitus without complications Status: Chronic (4) Hyperlipidemia ICD Codes: E78.5 - Hyperlipidemia, unspecified Status: Chronic (5) Hypertension ICD Codes: I10 - Essential (primary) hypertension Status: Chronic (6) Anxiety and depression ICD Codes: F41.9 - Anxiety disorder, unspecified; F32.9 - Major depressive disorder, single episode, unspecified Status: Chronic Procedure(s): TAAA and MEAGAN reimplantation Significant Findings GENERAL: A&OX3, NAD, GCS 15 SKIN: Warm and dry, Left sided abdominal incision intact with surgical glue/ incisions w/o R/D/S RESPIRATORY: No accessory muscle use,CTA GASTROINTESTINAL: Abdomen soft, non-tender, nondistended. MUSCULOSKELETAL: No cyanosis, or edema. Pt w/o SOB/Abdominal/back pain palpable R DP palpable L PT BLE warm w/ motor intact Laboratory Tests Test 02/24/17 04:45 Red Blood Count 3.38 MIL/MM3 (4.50-5.90) Hemoglobin 10.0 GM/DL (13.0-17.0) Hematocrit 29.0 % (39.0-51.0) Platelet Count 111 TH/MM3 (150-450) Creatinine 0.56 MG/DL (0.60-1.30) Calcium Level 7.8 MG/DL (8.5-10.1) Chloride Level 108 MEQ/L (98-107) Hospital Course: 76 yo male with past medical history significant for diabetes, hypertension, coronary artery disease status post CABG, chronic kidney disease Patient has a known 7.8 cm AAA. He underwent elective open retroperitoneal repair of AAA with 24x12 Dacron, and MEAGAN reimplantation today 02/19/17. Pt doing well post op Pt d/c today to SNF for rehab Allergies Coded Allergies Type Severity Reaction Last Updated Verified bee venom protein (honey bee) Allergy Unknown swelling 02/19/17 No Recent Impressions Chest X-Ray 02/26/17 0000 Signed Impressions: Service Date/Time: Sunday, February 26, 2017 05:08 - CONCLUSION: 1. Improvement in small left apical pneumothorax. Minimal basilar atelectasis. Benjamin Samuel MD Chest X-Ray 02/25/17 1030 Signed Impressions: Service Date/Time: Saturday, February 25, 2017 10:45 - CONCLUSION: Small left pneumothorax. Go Francis MD Chest X-Ray 02/25/17 0000 Signed Impressions: Service Date/Time: Saturday, February 25, 2017 04:22 - CONCLUSION: 1. Left chest tube with tiny left apical pneumothorax unchanged from February 24. Benjamin Samuel MD Chest X-Ray 02/24/17 0600 Signed Impressions: Service Date/Time: Friday, February 24, 2017 04:02 - CONCLUSION: 1. Left chest tube with small residual left apical pneumothorax. No significant effusion. Benjamin Samuel MD 02/24/17 02/24/17 02/25/17 02/25/17 02/26/17 02/26/17 06:00 18:00 06:00 18:00 06:00 18:00 Intake Total 820 ml 1200 ml 480 ml 1440 ml 480 ml Output Total 1500 ml 60 ml 760 ml 1750 ml 1650 ml Balance -680 ml 1140 ml -280 ml -310 ml -1170 ml Intake Oral 720 ml 1200 ml 480 ml 1440 ml 480 ml IV Total 100 ml Output Urine Total 1300 ml 700 ml 1750 ml 1650 ml Chest Tube Drainage Total 200 ml 60 ml 60 ml # Voids 4 # Bowel Movements 2 1 Laboratory Tests Test 02/24/17 04:45 White Blood Count 7.5 TH/MM3 Red Blood Count 3.38 MIL/MM3 Hemoglobin 10.0 GM/DL Hematocrit 29.0 % Mean Corpuscular Volume 85.7 FL Mean Corpuscular Hemoglobin 29.6 PG Mean Corpuscular Hemoglobin Concent 34.5 % Red Cell Distribution Width 15.0 % Platelet Count 111 TH/MM3 Mean Platelet Volume 8.7 FL Blood Urea Nitrogen 11 MG/DL Creatinine 0.56 MG/DL Random Glucose 90 MG/DL Calcium Level 7.8 MG/DL Sodium Level 141 MEQ/L Potassium Level 3.8 MEQ/L Chloride Level 108 MEQ/L Carbon Dioxide Level 26.9 MEQ/L Anion Gap 6 MEQ/L Estimat Glomerular Filtration Rate 143 ML/MIN Orders Procedure Category Date Status Time Chest, Single Ap RADDIAG 02/24/17 Resulted 06:00 Famotidine (Pepcid) MED 02/23/17 In Process 21:00 Labetalol Inj MED 02/23/17 In Process (Trandate Inj) 15:30 Cbc No Diff, Includes LAB 02/24/17 Complete Plts 06:00 Basic Metabolic Panel LAB 02/24/17 Complete (Bmp) 06:00 (Hub Use Only)Inp Phy CONS 02/24/17 Transmitted Cons/Ref Chest, Single Ap RADDIAG 02/25/17 Resulted Artificial Tears Opht MED 02/19/17 Complete Oint (Lacrilube Op 05:00 Epinephrine (1:1000) MED 02/19/17 Complete Inj (Epinephrine (1 05:00 Furosemide Inj (Lasix MED 02/19/17 Complete Inj) 05:00 Nitroglycerin-D5w 50 MED 02/19/17 Complete Mg/250 Ml (Nitrogly 05:00 Protamine Sulfate Inj MED 02/19/17 Complete (Protamine Sulfate 05:00 Vecuronium 10 Mg Inj MED 02/19/17 Complete (Norcuron 10 Mg Inj 05:00 Chest, Single Ap RADDIAG 02/25/17 Resulted 10:30 ^ Other Nursing Orders MINA 02/25/17 In Process 09:52 Chest, Single Ap RADDIAG 02/26/17 Resulted Resp Oxygen Nasal RSP 02/25/17 Logged Cannula Resp Incentive RSP 02/25/17 Complete Spirometry Attending Discharge DISCHARGE 02/26/17 Transmitted Order Vital Signs Date Time Temp Pulse Resp B/P (MAP) Pulse Ox O2 Delivery O2 Flow Rate FiO2 02/26/17 08:05 98.2 91 18 136/81 (99) 99 02/26/17 07:00 77 02/26/17 06:00 80 02/26/17 05:10 98.4 92 20 138/63 (88) 98 02/26/17 05:00 94 02/26/17 04:00 86 02/26/17 03:31 98 Room Air 02/26/17 03:00 90 02/26/17 02:00 90 02/26/17 01:00 92 02/26/17 00:00 92 02/25/17 23:23 98 Room Air 02/25/17 23:23 98.7 103 20 112/83 (93) 98 02/25/17 23:00 93 02/25/17 22:09 98 21 02/25/17 22:00 104 02/25/17 21:00 102 02/25/17 20:00 100 02/25/17 19:22 98 Room Air 02/25/17 19:22 98.7 96 20 158/83 (108) 98 02/25/17 19:00 92 02/25/17 18:00 84 02/25/17 17:00 83 02/25/17 16:00 87 02/25/17 15:00 92 02/25/17 15:00 99.0 98 20 148/90 (109) 100 02/25/17 15:00 98 Room Air 02/25/17 14:00 92 02/25/17 13:00 98 02/25/17 12:00 98 02/25/17 11:00 98 Room Air 02/25/17 11:00 100 02/25/17 11:00 98.1 94 20 155/89 (111) 98 02/25/17 10:00 74 02/25/17 09:00 98 02/25/17 08:00 97 02/25/17 07:00 99.0 103 20 136/75 (95) 98 02/25/17 07:00 98 Room Air 02/25/17 07:00 89 02/25/17 05:00 88 02/25/17 04:44 98.2 92 20 132/88 (103) 99 02/25/17 04:17 99 Room Air 02/25/17 04:00 76 02/25/17 03:00 79 02/25/17 02:00 88 02/25/17 01:00 86 02/25/17 01:00 98.2 96 20 133/78 (96) 99 02/25/17 01:00 99 Room Air 02/25/17 00:00 88 02/24/17 23:00 95 02/24/17 22:00 92 02/24/17 21:00 106 02/24/17 20:00 98.2 95 20 134/78 (96) 98 02/24/17 20:00 84 02/24/17 20:00 98 Room Air 02/24/17 19:23 95 21 02/24/17 19:00 90 02/24/17 18:00 88 02/24/17 17:00 87 02/24/17 16:10 77 02/24/17 15:00 98 Room Air 02/24/17 15:00 94 02/24/17 15:00 98.4 95 20 150/86 (107) 98 02/24/17 14:00 93 02/24/17 13:00 102 02/24/17 12:00 102 02/24/17 11:00 98 Room Air 02/24/17 11:00 114 02/24/17 11:00 98.3 103 20 151/87 (108) 100 02/24/17 10:00 103 02/24/17 09:23 98 02/24/17 09:00 84 02/24/17 08:00 86 02/24/17 07:00 98.0 87 20 133/77 (95) 98 02/24/17 07:00 94 02/24/17 07:00 98 Room Air 02/24/17 05:00 78 02/24/17 04:00 78 02/24/17 03:00 98 Room Air 02/24/17 03:00 80 02/24/17 03:00 98.5 90 14 122/76 (91) 98 02/24/17 02:00 86 02/24/17 01:00 86 02/24/17 00:00 92 02/23/17 23:30 99 Room Air 02/23/17 23:00 98.5 91 18 147/78 (101) 99 02/23/17 23:00 94 02/23/17 22:00 90 02/23/17 21:00 92 02/23/17 20:18 98.7 96 12 146/85 (105) 98 02/23/17 20:00 97 02/23/17 20:00 98 Room Air 02/23/17 19:00 98 02/23/17 18:00 104 02/23/17 17:08 98 02/23/17 15:54 98.4 97 20 127/87 (100) 98 02/23/17 15:54 98 Nasal Cannula 02/23/17 15:00 99.0 103 18 132/78 (96) 02/23/17 15:00 110 02/23/17 15:00 Room Air 02/23/17 14:46 97 21 02/23/17 11:40 18 Discharge Condition: Good Discharge Disposition: Discharge to SNF Discharge Instructions: Leave incisions Open to air May shower NO tub baths or swimming in a pool or ocean until incisions are fully healed Do not apply any creams or ointments to incisions Call the office to report any redness, drainage or swelling Follow up in our OPC on 03/14/17 at 1100 Bre BUITRAGO [facility] [phone] Any questions or concerns: Call [facility] Heart and V[facility] Surgery at [facility] [phone] Bre Edgar Feb 26, 2017 09:27
--- NOTE | 2017-02-26 10:02 | PD.VS.PN ---
Subjective Subjective/Hospital Course Pt evaluated this am at 0900 Pt w/o any c/o SOB/CP/BACK/ABDOMINAL pain Objective Vitals/I&O Date Time Temp Pulse Resp B/P (MAP) Pulse Ox O2 Delivery O2 Flow Rate FiO2 02/26/17 08:05 98.2 91 18 136/81 (99) 99 02/26/17 07:00 77 02/26/17 06:00 80 02/26/17 05:10 98.4 92 20 138/63 (88) 98 02/26/17 05:00 94 02/26/17 04:00 86 02/26/17 03:31 98 Room Air 02/26/17 03:00 90 02/26/17 02:00 90 02/26/17 01:00 92 02/26/17 00:00 92 02/25/17 23:23 98 Room Air 02/25/17 23:23 98.7 103 20 112/83 (93) 98 02/25/17 23:00 93 02/25/17 22:09 98 21 02/25/17 22:00 104 02/25/17 21:00 102 02/25/17 20:00 100 02/25/17 19:22 98 Room Air 02/25/17 19:22 98.7 96 20 158/83 (108) 98 02/25/17 19:00 92 02/25/17 18:00 84 02/25/17 17:00 83 02/25/17 16:00 87 02/25/17 15:00 92 02/25/17 15:00 99.0 98 20 148/90 (109) 100 02/25/17 15:00 98 Room Air 02/25/17 14:00 92 02/25/17 13:00 98 02/25/17 12:00 98 02/25/17 11:00 98 Room Air 02/25/17 11:00 100 02/25/17 11:00 98.1 94 20 155/89 (111) 98 02/26/17 02/26/17 02/26/17 07:00 15:00 23:00 Intake Total 480 ml Output Total 1650 ml Balance -1170 ml Imaging Last 48 hours Impressions Chest X-Ray 02/26/17 0000 Signed Impressions: Service Date/Time: Sunday, February 26, 2017 05:08 - CONCLUSION: 1. Improvement in small left apical pneumothorax. Minimal basilar atelectasis. Benjamin Samuel MD Chest X-Ray 02/25/17 1030 Signed Impressions: Service Date/Time: Saturday, February 25, 2017 10:45 - CONCLUSION: Small left pneumothorax. Go Francis MD Chest X-Ray 02/25/17 0000 Signed Impressions: Service Date/Time: Saturday, February 25, 2017 04:22 - CONCLUSION: 1. Left chest tube with tiny left apical pneumothorax unchanged from February 24. Benjamin Samuel MD Assessment and Plan Assessment: (1) AAA (abdominal aortic aneurysm) Status: Acute (2) Coronary artery disease Status: Chronic (3) Diabetes mellitus Status: Chronic (4) Hyperlipidemia Status: Chronic (5) Hypertension Status: Chronic (6) Anxiety and depression Status: Chronic Plan S/P TAAA with MEAGAN reimplantation (POD 6) Pt looks great Plan Reviewed Chest X Ray this am Pt w/o SOB D/C planning to SNF Bre BUITRAGO [facility] [phone] Discharge Planning Today to a SNF Arranged post op follow up Problem Qualifiers (1) AAA (abdominal aortic aneurysm): Qualified Codes: I71.4 - Abdominal aortic aneurysm, without rupture Bre Edgar Feb 26, 2017 10:02
[2017-02-26] MEDS: DOCUSATE SODIUM 100 MG CAP PO SCH (10:31)
[2017-02-26] MEDS: TOPIRAMATE 100 MG TAB PO SCH (10:31)
[2017-02-26] MEDS: FAMOTIDINE 20 MG TAB PO SCH (10:31)
[2017-02-26] MEDS: ASPIRIN 81 MG CHEW TAB PO SCH (10:31)
[2017-02-26] MEDS: MORPHINE SULFATE 4 MG/ML INJ IV PRN (10:37)
[2017-02-26] MEDS ORDERED: NORC5TAB PO (12:54)
== END 2017-02-26 14:24 | DRG 220 ==
LOC: HSDI 02-19 06:45 → HCVR 02-19 14:26 → HCIN 02-23 13:55
PROVIDERS: ADMIT Surgery; ATTEND Surgery
PROC: 02RW0JZ Replacement of Thoracic Aorta, Descending with Synthetic Substitute, Open Approach (ICD-10-PCS; 2017-02-19)
PROC: 04R00JZ Replacement of Abdominal Aorta with Synthetic Substitute, Open Approach (ICD-10-PCS; 2017-02-19)
PROC: 03U Upper Arteries, Supplement (ICD-10-PCS; 2017-02-19)
PROC: 30233K1 Transfusion of Nonautologous Frozen Plasma into Peripheral Vein, Percutaneous Approach (ICD-10-PCS; 2017-02-19)
PROC: 30233N1 Transfusion of Nonautologous Red Blood Cells into Peripheral Vein, Percutaneous Approach (ICD-10-PCS; principal; 2017-02-19 09:34)
DX: I71.6 Thoracoabdominal aortic aneurysm, without rupture (principal); E87.4 Mixed disorder of acid-base balance; E11.22 Type 2 diabetes mellitus with diabetic chronic kidney disease; E11.51 Type 2 diabetes mellitus with diabetic peripheral angiopathy without gangrene; J93.83 Other pneumothorax; J44.9 Chronic obstructive pulmonary disease, unspecified; N18.2 Chronic kidney disease, stage 2 (mild); I12.9 Hypertensive chronic kidney disease with stage 1 through stage 4 chronic kidney disease, or unspecified chronic kidney disease; I25.10 Atherosclerotic heart disease of native coronary artery without angina pectoris; I95.81 Postprocedural hypotension; K21.9 Gastro-esophageal reflux disease without esophagitis; E78.5 Hyperlipidemia, unspecified; F32.9 Major depressive disorder, single episode, unspecified; F41.9 Anxiety disorder, unspecified; Z87.891 Personal history of nicotine dependence; Z95.1 Presence of aortocoronary bypass graft
CPT/HCPCS: 36430; 71010; 80048; 80053; 82550; 82552; 82805; 82948; 83605; 85014; 85018; 85025; 85027; 85049; 85384; 85610; 85730; 86850; 86900; 86901; 86920; 86927; 94150; 94640; 94667; 94668; C1768; J0131; J0171; J0360; J0690; J0692; J1100; J1644; J1940; J2250; J2270; J2370; J2405; J2720; J3010; J3480; J7030; J7120; P9016; P9017

== ENCOUNTER → 2017-02-03 | Outpatient (CLI) | payer OTHER ==
[~2017-02-03] MED LIST changes: +ALBU6.7H INH; +ALPR0.25 PO; +ASPI-110 PO; +CHOL5000 PO; +CLOP75TA PO; +FISH1200 PO; +GUAI400T8 PO; +HYDR-3516 PO; +LEXA20TA PO; +LISI-519 PO; +MOBI15TA PO; +MONT10TA4 PO; +NITR1SUB3 SL; +OXYC1CAP PO
[2017-02-03 13:11] LABS: BLOOD, URINE NEG (NEG); GLUCOSE,URINE NEG (NEG); HYALINE CAST, URINE 5 /lpf (RARE); KETONE, URINE NEG (NEG); NITRITE,URINE NEG (NEG); URINE COLOR YELLOW (YELLW/STRAW)
[2017-02-03 13:12] LABS: COMMENT (UR) CULTURE INDICATED; CULTURE IF INDICATED CULTURE INDICATED; HEMATOCRIT 36.6 % (39.0-51.0); MEAN CELL VOLUME 85.4 FL (80.0-100.0); MEAN CORPUSCULAR HEMOGLOBIN 28.1 PG (27.0-34.0); MEAN CORPUSCULAR HGB CONC 32.9 % (32.0-36.0); PLATELET COUNT 148 TH/MM3 (150-450); RED BLOOD COUNT 4.28 MIL/MM3 (4.50-5.90); REVIEW FLAG FINAL; WHITE BLOOD COUNT 6.1 TH/MM3 (4.0-11.0)
[2017-02-03 13:22] LABS: APTT (PATIENT) 29.4 SEC (24.3-30.1); INTERNATIONAL NORMALIZED RATIO 1.1 RATIO; PROTHROMBIN TIME - PATIENT 12.1 SEC (9.8-11.6)
[2017-02-03 13:32] LABS: BICARBONATE 24.3 MEQ/L (21.0-32.0); POTASSIUM 3.8 MEQ/L (3.5-5.1)
--- NOTE | 2017-02-03 13:46 | RADRPT ---
EXAM DATE/TIME: 02/03/2017 13:27 [facility] COMPARISON: CTA THORACIC ABDOMINAL AORTA W 3D RECON, January 02, 2017, 12:22. INDICATIONS : Evaluate for pneumonia, pneumothorax or communicable disease. Pre op AAA repair. MEDICAL HISTORY : Chronic obstructive pulmonary disease. Hypertension Myocardial infarction. SURGICAL HISTORY : CABG. ENCOUNTER: Initial ACUITY: 1 day PAIN SCORE: 0/10 LOCATION: Bilateral chest FINDINGS: Frontal and lateral views of the chest demonstrate a normal-sized cardiac silhouette in this patient post median sternotomy. Descending thoracic aorta is tortuous. Lungs demonstrate features characteris tic of emphysema. No effusion, consolidation, or pneumothorax is identified. Bones and soft tissues d emonstrate no acute finding. CONCLUSION: Emphysema. However, no acute cardiopulmonary abnormality is identified. Chris Vogt MD on February 03, 2017 at 13:41 Board Certified Radiologist. This report was verified electronically.
--- NOTE | 2017-02-04 13:46 | EKG ---
Date Performed: 02/03/2017 Time Performed: 13:11:27 PTAGE: 76 years EKG: Sinus rhythm WITH MARKED RHYTHM IRREGULARITY, POSSIBLE NON-CONDUCTED PAC, SA BLOCK, AV BLOCK, OR SINUS PAUSE [place] ED LEFT AXIS DEVIATION LOW QRS VOLTAGE IN EXTREMITY LEADS NONSPECIFIC T-WAVE ABNORMALITY Since previo us tracing, no significant change noted ABNORMAL ECG PREVIOUS TRACING : 01/02/2017 10.31 DOCTOR: Hipolito Kang Interpretating Date/Time 02/04/2017 13:44:34
== END ==
LOC: CPRE 12:15
PROVIDERS: ATTEND Surgery
DX: Z01.812 Encounter for preprocedural laboratory examination (principal); Z01.811 Encounter for preprocedural respiratory examination; Z01.810 Encounter for preprocedural cardiovascular examination; I71.4 Abdominal aortic aneurysm, without rupture; I10 Essential (primary) hypertension; N39.0 Urinary tract infection, site not specified; B95.7 Other staphylococcus as the cause of diseases classified elsewhere; J44.9 Chronic obstructive pulmonary disease, unspecified; I25.2 Old myocardial infarction
CPT/HCPCS: 71020; 80048; 81001; 85027; 85610; 85730; 86403; 87077; 87086; 87186; 93005